=== PATIENT | female | born 1945 | race Caucasian/White ===

== ENCOUNTER 2025-08-07 12:48 | Outpatient (REF) | payer MEDICARE, SELFPAY ==
[2025-08-07 15:34] LABS: Folate 14.2 ng/mL (> or = 4.0); Vitamin B12 785 pg/mL (200-900)
== END 2025-08-07 12:49 | disposition home or self-care (01) ==
LOC: HO.LAB 12:48
PROVIDERS: PCP Internal Medicine; Visit Provider Psychiatry & Neurology Neurology
DX: G30.9 Alzheimer's disease, unspecified (principal); F02.80 Dementia in other diseases classified elsewhere, unspecified severity, without behavioral disturbance, psychotic disturbance, mood disturbance, and anxiety; Z79.620 Long term (current) use of immunosuppressive biologic
CPT/HCPCS: 36415; 82607; 82746; 99202

== ENCOUNTER 2025-08-07 12:48 | Outpatient (AMB) | payer MEDICARE, SELFPAY ==
--- NOTE | 2025-08-07 13:00 | A.OFFVIS_ITS ---
Vital Signs 08/07/25 13:41 Height 5 ft Weight 125 lb BMI 24.4 Intake Visit Reasons: Alzheimers with late onset Allergies amoxicillin Allergy (Unknown, Verified 08/02/25 12:10) Unknown sulfamethoxazole (From Bactrim) Allergy (Unknown, Verified 08/02/25 12:10) Nausea and Vomiting trimethoprim (From Bactrim) Allergy (Unknown, Verified 08/02/25 12:10) Nausea and Vomiting HPI Comments Details: The patient is a 80-year-old female presenting with concerns regarding worsening cognitive function. Cognitive impairments began about a year ago, leading to an initial evaluation by Dr. Mallory, where borderline cognition was noted through testing. Over the year, symptoms progressed to the point of being unable to consistently recall the date or day, besides worsening forgetfulness of routine details, events, and current affairs. The results from a PET scan authorized by Dr. Mallory revealed signs consistent with Alzheimer's disease. Additionally, an MRI was done at [facility] to evaluate further. Despite retaining the ability to prepare simple meals, the patient has observed decreased proficiency in managing daily tasks such as handling financial responsibilities and remembering appointments, indicating a growing need for supervision and assistance. The patient's daughter indicated increasing challenges in coping with the patient?s condition, devoid of known sensory or motor symptoms arising from the cognitive decline. Previous management approaches were non-pharmaceutical, focusing on behavioral coping mechanisms like the use of calendars. The condition, however, seems to demand a more standardized medical approach given its advancement over the recent year. [facility] Medical History (Updated 08/07/25 @ 13:40 by Surendra Ferraro MD) Alzheimer disease Surgical History (Updated 08/02/25 @ 12:07 by Nicko Vences CMA) History of cataract surgery History of dilatation and curettage History of mandibular surgery S/P right knee arthroscopy Family History (Updated 08/02/25 @ 12:09 by Nicko Vences CMA) Father Alzheimer disease Son IBS (irritable bowel syndrome) Daughter IBS (irritable bowel syndrome) Review of Systems Const Details: - Cognitive: Reports forgetfulness, confusion about dates. - Neurologic: Denies sensory or motor symptoms. - Psychological: Denies significant psychiatric symptoms or history of substance abuse. Physical Exam Vital Signs: BMI result Body Mass Index 24.4 Neuro Other: Mental Status: She is alert and awake with normal spontaneity of speech fluency comprehension and affect. Her MOCA score was 15 and mini-mental status score was 17. Cranial Nerves: CN II: Visual head full to confrontation, visual acuity intact. CN III, IV, : Pupils equal, round, reactive to light and accommodation. Extraocular movements are normal. CN V: Facial sensation is normal. CN VII: Facial movements symmetrical. CN VIII: Hearing intact to bedside conversation is normal. CN IX, X: Palate elevates symmetrically. CN XI: Shoulder shrug and head turn symmetrical. CN XII: Tongue midline without atrophy or fasciculations. Deep tendon reflexes were trace to absent. She was walking cautiously with no obvious signs of parkinsonism or tremor. Extrapyramidal: Full facial expressions and blinking. No rigidity. Movements are appropriate with no tremor or abnormality. Speech: Normal; no dysarthria or tremor. Assessment & Plan Assessment & Plan (1) Alzheimer disease: Comment: Labs at [facility] in May 2025: CMP ok, LFTs ok, TSH 1.14 MRI brain WO at [facility] in Nov 2024: Mild atrophy and mild to mod MVD Amyloid PET at [facility] in May 2025: + for amyloid load suggestive of AD pTau 217 in Jan 2025: 0.89 (N:<0.18). Code(s): G30.9 - Alzheimer's disease, unspecified; F02.80 - Dementia in other diseases classified elsewhere, unspecified severity, without behavioral disturbance, psychotic disturbance, mood disturbance, and anxiety Category: Medical Plan Impression recommendations: 80 years old woman with isur-fu-xykbjdaw dementia of Alzheimer type. Her daughter was here to see if she could get and infusion medicine. Daughter has done her research. She was introduced to new monoclonal antibody type of Alzheimer medicines which sometime are used to slow down the process of this condition. While they could provide some benefit, rare patients can have side effect and some side-effects could be significant. Overall, 3-6% of patients can develop abnormalities on MRI of brain. Some of those abnormalities can present like a stroke and rarely patients can have a bleed. Fall these type of pathologies sometime could be relatively benign but at times could result in disability and might also be fatal. Daughter was her healthcare proxy in wanted to go ahead with prescribing these medicines. I would start the insurance process to see if it could work out for her. Formal MRI protocol would be followed to for monitoring. Orders: Orders Vitamin B12 and Folate Today F02.80 - Dementia in other diseases classified elsewhere, unspecified severity, without behavioral disturbance, psychotic dis turbance, mood disturbance, and anxiety, G30.9 - Alzheimer's disease, unspecified Referrals Infusion Center Notification F02.80 - Dementia in other diseases classified elsewhere, unspecified severity, without behavioral disturbance, psychotic disturbance, mood disturbance, and anxiety, G30.9 - Alzheimer's disease, unspecified Medications: New lecanemab-irmb (Leqembi) administer over 1 hr 567 mg (5.67 mL) IV Q2W 180 days Coding Level of Care Code New Pt Level 5 (87568) Diagnoses Alzheimer disease G30.9; F02.80
[2025-08-07 13:41] VITALS: BMI 24.4
--- OUTSIDE RECORDS SUMMARY | 2025-08-07 15:14 | XMS_ITS | Patient Health Record ---
Author Organization Julianne Mallory MD Address [address] [place] [phone] Support Name Relationship Address Phone MckeonPerla feldman(child) Emergency Contact [address] [place] [address] 7
== END 2025-08-07 14:24 | disposition home or self-care (01) ==
LOC: HO.HSM 12:49
PROVIDERS: PCP Internal Medicine; Visit Provider Psychiatry & Neurology Neurology
DX: G30.1 Alzheimer's disease with late onset (principal); F02.B0 Dementia in other diseases classified elsewhere, moderate, without behavioral disturbance, psychotic disturbance, mood disturbance, and anxiety
CPT/HCPCS: 99205

== ENCOUNTER 2025-08-30 13:08 | Outpatient (AMB) | payer MEDICARE, SELFPAY ==
--- OUTSIDE RECORDS SUMMARY | 2025-08-29 09:30 | XMS_ITS ---
Author Organization Julianne Mallory MD Address [address] [place] [phone] Care Team Providers Care Warehouse Stocker Name Role Phone Julianne Mallory Primary Care Provider REASON FOR VISIT 3m f/u Hypertension Encounters Encounter Location Date Provider Diagnosis Julianne Mallory MD [address] [place] [phone] 08/29/2025 Julianne Mallory Plan Of Treatment Next Appt Details Provider Name:Julianne Mallory , 09/20/2025 03:30:00 PM, [address] [place] [address], [phone], Provider Name:Julianne Mallory , 06/11/2026 10:00:00 AM, [address] [place] [address], [phone], Progress Notes * Carlos KAURenDOB:[birth year] (80 yo F)Acc No.[id number]:08/29/2025 Progress Notes Patient: Soni JOHNVERONICA Anne Provider: Goyo Mallory MD :1945 A ge:80 Y S ex:Female Date:08/29/2025 Address:[address] [place], [place] [phone] Subjective: * Chief Complaints: * 1 . [...] Electronic signature of Tala Mallory MD on 08/30/2025 at 04:49 PM EDT Sign off status: Pending * Provider: Goyo Mallory MD Date: Generated for Saadia joseph/Radha/Claire on: 04:49 PM EDT
--- NOTE | 2025-08-30 13:27 | MHC.OFFVIS ---
Intake Visit Reasons: 1 month f/u Allergies amoxicillin Allergy (Unknown, Verified 08/02/25 12:10) Unknown sulfamethoxazole (From Bactrim) Allergy (Unknown, Verified 08/02/25 12:10) Nausea and Vomiting trimethoprim (From Bactrim) Allergy (Unknown, Verified 08/02/25 12:10) Nausea and Vomiting HPI Comments Details: 80 years old woman with Alzheimer dementia. Two of her daughters were here and we had long discussion again about the new type of treatment its potential risks and benefits. The wanted to go ahead with the treatment and we would try to start the processes soon as possible. [facility] Medical History (Updated 08/07/25 @ 13:40 by Surendra Ferraro MD) Alzheimer disease Surgical History (Updated 08/02/25 @ 12:07 by Nicko Vences [facility]) History of cataract surgery History of dilatation and curettage History of mandibular surgery S/P right knee arthroscopy Family History (Updated 08/02/25 @ 12:09 by Nicko Vences CMA) Father Alzheimer disease Son IBS (irritable bowel syndrome) Daughter IBS (irritable bowel syndrome) Review of Systems Const Details: Constitutional:?No fever, chills, fatigue, weight loss, or night sweats. HEENT:?No headache, vision changes, hearing loss, nasal congestion, sore throat. Neurological:?No dizziness, syncope, seizures, numbness, tingling, weakness, tremors, memory loss. Psychiatric:?No anxiety, depression, mood swings, sleep disturbance, or hallucinations. Endocrine:?No heat/cold intolerance, polydipsia, polyuria, or hair/skin changes. Hematologic/Lymphatic:?No easy bruising, bleeding, or lymphadenopathy. Integumentary (Skin):?No rash, lesions, itching, or color changes. ? Physical Exam Neuro Other: Mental Status: Alert and oriented to person, place, and time. Normal attention. Normal spontaneous speech, fluency, and comprehension. Cranial Nerves: CN II: Visual head full to confrontation, visual acuity intact. CN III, IV, : Pupils equal, round, reactive to light and accommodation. Extraocular movements are normal. CN V: Facial sensation is normal. CN VII: Facial movements symmetrical. CN VIII: Hearing intact to bedside conversation is normal. CN IX, X: Palate elevates symmetrically. CN XI: Shoulder shrug and head turn symmetrical. CN XII: Tongue midline without atrophy or fasciculations. Coordination: Xbdbgg-ji-veiv and rzla-kj-mivv testing normal. No dysmetria. Gait and Station: No obvious gait abnormality. No ataxia or instability. Extrapyramidal: Full facial expressions and blinking. No rigidity. Movements are appropriate with no tremor or abnormality. Speech: Normal; no dysarthria or tremor. Results Reviewed Results Reviewed: B12 and folate levels were normal. Assessment & Plan Assessment & Plan (1) Alzheimer disease: Comment: Labs at [facility] in May 2025: CMP ok, LFTs ok, TSH 1.14 MRI brain WO at [facility] in Nov 2024: Mild atrophy and mild to mod MVD Amyloid PET at [facility] in May 2025: + for amyloid load suggestive of AD pTau 217 in Jan 2025: 0.89 (N:<0.18). Code(s): G30.9 - Alzheimer's disease, unspecified; F02.80 - Dementia in other diseases classified elsewhere, unspecified severity, without behavioral disturbance, psychotic disturbance, mood disturbance, and anxiety Category: Medical Plan 80 years old woman with Alzheimer dementia. Leqembi was prescribed after discussing is risks and benefits including possibility of stroke, disability, or in 3-6 % of patients. Orders: Referrals Infusion Center Notification F02.80 - Dementia in other diseases classified elsewhere, unspecified severity, without behavioral disturbance, psychotic disturbance, mood disturbance, and anxiety, G30.9 - Alzheimer's disease, unspecified Coding Level of Care Code Est Pt Level 4 (14593) Diagnoses Alzheimer disease G30.9; F02.80
--- OUTSIDE RECORDS SUMMARY | 2025-08-30 16:50 | XMS_ITS | Patient Health Record ---
Author Organization [facility] Address [address] [id number] Care Team Providers Care Line And Frame Poler Name Role Phone [facility] Primary Care Provider Allergies Allergen (clinical drug ingredient) Drug/Non Drug Allergy documented on EMR Reaction Allergy Type Onset Date Status amoxicillin Amoxicillin Unknown Drug Allergy Act regis sulfamethoxazole / trimethoprim Bactrim nausea and vomiting Drug Allergy Active Results Component Value Reference Range Notes HEMOGLOBIN A1C Reviewed date:05/26/2025 02:45:23 PM Interpretation: Performing Lab: Notes/Report: Hemoglobin A1C 5.9 <6.5 % Mean Bld Glu Estim. 123 Urinalysis, Complete-[id number] Reviewed date:06/07/2025 04:48:54 PM Interpretation: Performing Lab:[facility] [place], [address] [place] [address], Phone - [phone], Director - Nasrin Notes/Report: Specific [place] 1.015 1.005-1.030 pH 7.0 5.0-7.5 Urine-Color Yellow Yellow Appearance Clear Clear WBC Esterase Negative Negative Protein Negative Negative/Trace Glucose Negative Negative Ketones Negative Negative Occult Blood Negative Negative Bilirubin Negative Negative Urobilinogen,Semi-Qn 0.2 0.2-1.0 mg/dL Nitrite, Urine Negative Negative Microscopic Examination Micr oscopic follows if indicated. Microscopic Examination See below: Micr oscopic was indicated and was performed. WBC None seen 0 - 5 /hpf RBC 0-2 0 - 2 /hpf Epithelial Cells (non renal) 0-10 0 - 10 /hpf Casts None seen None seen /lpf Bacteria None seen None seen/Few APOE Alzheimer's Risk-[id number] Reviewed date:06/07/2025 04:48:55 PM Interpretation: Performing Lab:[facility], [address], [place], Phone - [phone], Director - Nasrin Notes/Report: Methodology: Patient DNA is assayed for the APOE genotype by PCR amplification of a specific region in exon 4 of the APOE gene followed by digestion with restriction enzyme Poacher Operator I and separation of fragments by polyacrylamide gel electrophoresis. This approach allows the APOE E2, E3, and E4 alleles to be distinguished. Analytical sensitivity and specificity are >99.5%. Individuals are interpreted as having one of the following genotypes: E2/E2, E3/E3, E4/E4, E2/E3, E2/E4, E3/E4. APO E Genotyping Result: E3/E3 Interpretation: Negative for the APOE4 variant that is associated with increased risk for late onset Alzheimer's disease (AD). E3/E3 is the most common APOE genotype and is not associated with increased risk for AD. RECOMMENDATIONS Genetic counseling is recommended. Due to the lack of measures to prevent the development of AD, the ACMG/NSGC guidelines do not recommend presymptomatic testing, but if it is performed, guidelines are provided (Prosper CHAHAL et al. 2011). The APOE Genotyping: Alzheimer's Risk test is not recommended for children. NOTE: This is not a diagnostic test. Results should be interpreted along with clinical findings and other data. This test evaluates only for the APOE genotype and cannot detect genetic abnormalities elsewhere in the genome. It should be realized that there are possible sources of error including sample misidentification, rare technical errors, trace contamination of PCR reactions, and rare genetic variants that may interfere with analysis. For inquiries or genetic consultation, please call [facility] at . Comment: INFORMATION ABOUT THE APOE GENOTYPE AND ALZHEIMER'S DISEASE Alzheimer's disease (AD) is the most common form of dementia in the elderly and currently affects more than 5 million Americans. It is a progressive neurodegenerative disorder with brain findings of plaques and neurofibrillary tangles containing beta-amyloid and tau protein respectively. The predominant form of AD is late onset (age > 60-65), which can be familial (15-20%) or sporadic. The APOE4 variant increases the risk for late onset AD and may contribute to the pathology of the disease. This risk is increased by approximately 2 to 3-fold for individuals with one copy of the APOE4 variant and by approximately 10 ff65-vwes for individuals with two copies of this variant (E4/E4 genotype). The APOE2 variant has some protective effect against development of late onset AD. The lifetime risk for late onset AD is approximately 10-12% in the general population, though it is higher in women than men and doubles when there is a first degree relative with this disorder. The lifetime risk is approximately 9% for individuals negative for APOE4, and for individuals with E4/E4 may be as high as 25% for males and 45% for females. Among patients with late onset AD, the presence of APOE4 may lead to earlier development of symptoms. However, APOE4 is neither necessary nor sufficient for the development of AD. Approximately 30-50% of patients with late onset AD do not have an APOE4 allele. APOE4 is common, with 25% of the general population having one copy and 1% having two copies of this variant. Among patients with late onset AD, 50-70% are positive for APOE4. The development of late onset AD is influenced by many factors other than APOE4 including age, gender, family history, level of education and history of head trauma. Midlife cardiovascular risk factors in individuals with APOE4 also increase risk for cognitive decline. A number of genetic influences in addition to APOE4 have also been reported and are under investigation. This test was developed and its performance characteristics determined by [facility]. It has not been cleared or approved by the Food and Drug Administration. The FDA has determined that such clearance or approval is not necessary. REFERENCES Sreedhar A et al. Sex modifies the APOE-related risk of developing Alzheimer disease. Annal Neurol 2014;75(4):563-573 Sawyer BROWN. Alzheimer Disease Overview. GeneReviews (internet). Dylan URIBE et al., editors. [facility]: [facility], [place], [place]. Last revised 2014. Prosper JS et al. Genetic counseling and testing for Alzheimer disease: Joint practice guidelines of the [place] [employer] and the National Society of Genetic Counselors. Marianne in Med 2011;[phone]. Jae SALINAS. Apolipoprotein E: Implications for AD neurobiology, epidemiology and risk assessment. Neurobiology of Aging 2011;32:778-790 [facility] Informed Consent Fo Reviewed date:06/07/2025 04:48:55 PM Interpretation: Performing Lab:[facility] [address], [address], [place], Phone - [phone], [facility] Notes/Report: [facility] Informed Consent Form [facility] Informed Consent Form 02 Please Fax back to [phone]. Many states require laboratories to have documentation that the appropriate health care provider has obtained informed consent from patients before the laboratory conducts genetic testing. Informed consent includes the patient understanding the purpose of the test, how the test is performed, the reliability of the test, alternatives to testing, implications of test results, and options on how to instruct the laboratory to store, use or dispose of the sample when testing is complete. [facility] did not receive any documentation of informed consent for above mentioned patient and ordered tests. Please check the statement applicable to this patient and sign below so that [facility] the results [facility] this patient. . [] I authorize and confirm patient consent for the above mentioned genetic test(s). . [] I have provided appropriate informed consent for the above mentioned test(s) and documentation of this consent is maintained in the patient record. . . Health care provider signature Da te . Printed name . Fax back to [facility] at [phone] . [facility] Hemoglobin [id number] Reviewed date:12/02/2024 02:25:44 PM Interpretation: Performing Lab:[facility], [place] , [place], Phone - [phone], Director - Nasrin Notes/Report: Hemoglobin A1c 5.9 4.8-5.6 % . Prediabetes: 5.7 - 6.4 Diabetes: >6.4 Glycemic control for adults with diabetes: <7.0 Vitamin [id number] Reviewed date:12/02/2024 02:25:44 PM Interpretation: Performing Lab:[facility], [place] , [place], Phone - [phone], Director - Nasrin Notes/Report: Vitamin B12 151 549-1789 pg/mL Thyroxine (T4) Free, Direct- [id number] Reviewed date:12/02/2024 02:25:44 PM Interpretation: Performing Lab:[address], Phone - [phone], Director - [facility] Notes/Report: T4,Free(Direct) 1.59 0.82-1.77 ng/dL Folate (Folic Acid), Serum-0 03588 Reviewed date:12/02/2024 02:25:44 PM Interpretation: Performing Lab:[facility], Phone - [phone], Director - [facility] Notes/Report: Folate (Folic Acid), Serum 14.6 >3.0 ng/mL A serum folate concentration of less than 3.1 ng/mL is considered to represent clinical deficiency. Urinalysis, Complete-[id number] Reviewed date:12/02/2024 02:25:44 PM Interpretation: Performing Lab:[address], Phone - [phone], Director - [facility] Notes/Report: Specific [place] 1.011 1.005-1.030 pH 6.5 5.0-7.5 Urine-Color Yellow Yellow Appearance Clear Clear WBC Esterase Negative Negative Protein Negative Negative/Trace Glucose Negative Negative Ketones Negative Negative Occult Blood Negative Negative Bilirubin Negative Negative Urobilinogen,Semi-Qn 0.2 0.2-1.0 mg/dL Nitrite, Urine Negative Negative Microscopic Examination Micr oscopic follows if indicated. Microscopic Examination See below: Micr oscopic was indicated and was performed. WBC None seen 0 - 5 /hpf RBC None seen 0 - 2 /hpf Epithelial Cells (non renal) None seen 0 - 10 /hpf Casts None seen None seen /lpf Bacteria None seen None seen/Few [id number]-[id number] Reviewed date:12/02/2024 02:25:44 PM Interpretation: Performing Lab:[facility], Phone - [phone], Director - [facility] Notes/Report: TSH 2.050 0.450-4.500 uIU/mL Vitamin D, 59-Rmxfrcm-[id number] Reviewed date:12/02/2024 02:25:44 PM Interpretation: Performing Lab:[facility] [place], [address] [place] [address], Phone - [phone], Director - Nasrin Notes/Report: Vitamin D, 25-Hydroxy 38.2 30.0-100.0 ng/mL Vitamin D deficiency has been defined by the [place] of Medicine and an Endocrine Society practice guideline as a level of serum 25-OH vitamin D less than 20 ng/mL (1,2). The Endocrine Society went on to further define vitamin D insufficiency as a level between 21 and 29 ng/mL (2). 1. IOM ([place] of Medicine). 2010. Dietary reference intakes for calcium and D. [place]: The National Academies Press. 2. Keeley MF, Michael NC, Michael MCKEE, et al. Evaluation, treatment, and prevention of vitamin D deficiency: an Endocrine Society clinical practice guideline. JCEM. 2010; 96(7):1911-30. Albumin/Creatinine Ratio,Uri ne-[id number] Reviewed date:12/02/2024 02:25:44 PM Interpretation: Performing Lab:[facility] [place], [address] [place] [address], Phone - [phone], Director - Nasrin Notes/Report: Creatinine, Urine 63.6 Not Estab. mg/dL Albumin, Urine 5.0 Not Estab. ug/mL Alb/Creat Ratio 8 0-29 mg/g creat Normal: 0 - 29 Moderately increased: 30 - 300 Severely increased: >300 Comp. Metabolic Panel (14)-3 42062 Reviewed date:12/02/2024 02:25:44 PM Interpretation: Performing Lab:[facility] [place], [address] [place] [address], Phone - [phone], Director - Nasrin Notes/Report: Glucose 111 70-99 mg/dL BUN 14 8-27 mg/dL Creatinine 0.88 0.57-1.00 mg/dL eGFR 67 >59 mL/min/1.73 BUN/Creatinine Ratio 16 12-28 Sodium 140 134-144 mmol/L Potassium 5.3 3.5-5.2 mmol/L Chloride 99 96-106 mmol/L Carbon Dioxide, Total 25 20-29 mmol/L Calcium 10.3 8.7-10.3 mg/dL Protein, Total 7.6 6.0-8.5 g/dL Albumin 4.9 3.8-4.8 g/dL Globulin, Total 2.7 1.5-4.5 g/dL Bilirubin, Total 0.8 0.0-1.2 mg/dL Alkaline Phosphatase 91 44-121 IU/L AST (SGOT) 29 0-40 IU/L ALT (SGPT) 15 0-32 IU/L LP+Non-HDL Cholesterol-90703 5 Reviewed date:12/02/2024 02:25:44 PM Interpretation: Performing Lab:[facility], [address], [place], Phone - [phone], Director - Nasrin Notes/Report: Cholesterol, Total 241 100-199 mg/dL Triglycerides 91 0-149 mg/dL HDL Cholesterol 99 >39 mg/dL VLDL Cholesterol Luis 15 5-40 mg/dL LDL Chol Calc (NIH) 127 0-99 mg/dL Non-HDL Cholesterol 142 0-129 mg/dL MR Brain WO Reviewed date:12/12/2024 04:02:24 PM Interpretation: Performing Lab: Notes/Report: IMGEAP Reviewed date:12/02/2024 02:25:44 PM Interpretation: Performing Lab: Notes/Report: See Note [facility], a member of [facility] PROCEDURE: Noncontrast MRI of the brain. HISTORY: mild cognitive impairment. COMPARISON: None. TECHNIQUE: Multiplanar multisequence MRI of the brain without intravenous contrast administration. FINDINGS: BRAIN: No diffusion abnormality. No mass or extra-axial fluid collection. No hydrocephalus. The major intracranial flow voids are preserved. Age commensurate ventricles and sulci. Foci of T2 prolongation in the supratentorial white matter are nonspecific but likely sequela of mild chronic microvascular ischemic disease. ORBITS: Lens implants. SINUSES/MASTOIDS: Normal. CALVARIUM: Normal. OTHER: The visualized skull base soft tissues are normal. Partially visible mild degenerative changes of the cervical spine. IMPRESSION: 1. No acute intracranial findings. 2. Mild chronic microvascular ischemic changes of the supratentorial white matter. -------- FINAL REPORT -------- Dictated By: Omid Grossman Dictated Date: 12/02/2024 10:12 ET Assigned Physician: Omid Grossman Reviewed and Electronically Signed By: Omid Grossman Signed Date: 12/02/2024 10:21 ET Workstation ID: [id number] Transcribed By: Self Edit Transcribed Date: 12/02/2024 10:12 ET KRISTAL Reviewed date:10/02/2024 08:55:06 AM Interpretation: Performing Lab: Notes/Report: See Note [facility], a member of [facility] EXAM: SCREENING MAMMOGRAPHY, BILATERAL HISTORY: SCREENING. No additional history. COMPARISON: 10/24/2022, 10/21/2021, 09/24/2020 TECHNIQUE: Synthesized CC and MLO projections of each breast. Tomosynthesis of each breast in the CC and MLO projections. ADDITIONAL IMAGING: None Computer-aided detection was employed with the Duable ChineseD Xenapto AI 3-D. TISSUE DENSITY: There are scattered areas of fibroglandular density. (BI-RADS category B) FINDINGS: RIGHT BREAST: Circumscribed equal density 0.7 cm oval mass with a fatty notch in the 10 o'clock position 4 cm from the right nipple is most consistent with an intramammary lymph node. No additional suspicious right breast findings LEFT BREAST: No suspicious mass. No suspicious calcification. No distortion. No additional suspicious left breast findings IMPRESSION: No mammographic evidence of malignancy. No suspicious interval change. A negative mammogram in the presence of a clinically suspicious palpable abnormality does not preclude the possibility of malignancy or alter the indications for biopsy. ASSESSMENT: BI-RADS 2: BENIGN RECOMMENDATION(S): 1: Routine screening mammogram BILATERAL in 1 year. -------- FINAL REPORT -------- Dictated By: Iker Rosenberg Dictated Date: 09/23/2024 10:40 ET Assigned Physician: Iker Rosenberg Reviewed and Electronically Signed By: Iker Rosenberg Signed Date: 09/23/2024 10:52 ET Workstation ID: [id number] Transcribed By: Self Edit Transcribed Date: 09/23/2024 10:40 ET Vitamin [id number] Reviewed date:01/30/2025 06:06:41 PM Interpretation: Performing Lab:[facility], [address] [place] [address], Phone - [phone], Director - Ron Notes/Report: Test(s) [id number] was developed and its performance characteristics determined by [facility]. It has not been cleared or approved by the Food and Drug Administration. Vitamin B12 631 963-9581 pg/mL TSH-[id number] Reviewed date:01/30/2025 06:06:41 PM Interpretation: Performing Lab:[facility], [address] [place] [address], Phone - [phone], Director - [facility] Notes/Report: Test(s) [id number] was developed and its performance characteristics determined by [facility]. It has not been cleared or approved by the Food and Drug Administration. TSH 1.630 0.450-4.500 uIU/mL Phosphorylated Tau 217 (pTau -217) Reviewed date:01/30/2025 06:06:41 PM Interpretation: Performing Lab:[facility], [address] [place] [address], Phone - [phone], Director - [facility] Notes/Report: Test(s) [id number] was developed and its performance characteristics determined by [facility]. It has not been cleared or approved by the Food and Drug Administration. p-jxs622 0.89 0.00-0.18 pg/mL Clinical cutoff value was established using samples from a patient cohort characterized with amyloid PET data. A p-llq692 value of >0.18 is a reported surrogate marker for beta amyloid pathology, and can be used to facilitate biological identification of Alzheimer's disease (1). p-mia041 has also been used in clinical trials to monitor patients on anti-amyloid therapy (2,3). Test performed by [employer] Digital Keys chemiluminescent enzyme immunoassay (CLEIA). Values obtained with different methods cannot be used interchangeably. The validated limit of quantification is 0.06 pg/mL. Assay detection limit is 0.03 pg/mL. Footnotes 1. Amador Tong, et al. Diagnostic Accuracy of a Plasma Phosphorylated Tau 217 Immunoassay for Alzheimer Disease Pathology. RG neurology (2023). 2. Amador Tong, et al. Differential roles of A42/40, p-oyw366 and p-jqk183 for Alzheimer's trial selection and disease monitoring. Nature medicine 28.12 (2021): 1967-9781. 3. Jenn CARRIZALES, Rachelle M, Xenia SC, et al. Association of Donanemab Treatment With Exploratory Plasma Biomarkers in Early Symptomatic Alzheimer Disease: A Secondary Analysis of the TRAILBLAZER-ALZ Randomized Clinical Trial . RG Neurol. 2021;79(12):4200-8762. COMPREHENSIVE METABOLIC PANJosafat L Reviewed date:05/26/2025 02:45:23 PM Interpretation: Performing Lab: Notes/Report: Sodium 138 133-145 mmol/L Potassium 4.5 3.5-5.5 mmol/L Chloride 103 96-110 mmol/L CO2 30 21-32 mmol/L Anion Gap 5 3-11 Glucose 88 70-100 mg/dL BUN 14 5-25 mg/dL Creatinine 0.79 0.50-1.10 mg/dL eGFR 77 >=60 mL/min/1.73m2 Calculati on based on the Chronic Kidney Disease Epidemiology Collaboration (CKD-EPI) equation refit without adjustment for race. BUN/Creatinine Ratio 17.7 Calcium 9.1 8.5-10.5 mg/dL AST (SGOT) 22 10-42 unit/L ALT (SGPT) 21 10-60 unit/L Alkaline Phosphatase 70 42-121 unit/L Total Protein 6.6 6.0-8.0 g/dL Albumin 3.8 3.2-5.0 g/dL Total Bilirubin 0.6 0.0-1.4 mg/dL LIPID PANEL WITH REFLEX TO D IRECT LDL Reviewed date:05/26/2025 02:45:23 PM Interpretation: Performing Lab: Notes/Report: Cholesterol 188 0-200 mg/dL Triglycerides 111 0-150 mg/dL HDL 91 >=40 mg/dL LDL Calculated 75 0-100 mg/dL VLDL Cholesterol Luis 22.2 Non HDL Chol. (LDL+VLDL) 97 <145 mg/dL Chol/HDL Ratio 2.1 0.0-4.4 THYROID STIMULATING HORMONE Reviewed date:05/26/2025 02:45:23 PM Interpretation: Performing Lab: Notes/Report: TSH 1.14 0.40-4.00 mcIU/mL THYROXINE FREE Reviewed date:05/26/2025 02:45:23 PM Interpretation: Performing Lab: Notes/Report: Free T4 1.78 0.70-1.80 ng/dL VITAMIN D 25 HYDROXY Reviewed date:05/26/2025 02:45:23 PM Interpretation: Performing Lab: Notes/Report: Vit D, 25-Hydroxy 34.6 30.0-80.0 ng/mL Reason For Referral Reason faxed Diagnosis 1 Alzheimer's disease with late onset (G30.1) Referral Organization [facility] Referring Provider First Name Julianne Referring Provider Last Name Mohamud Referring Provider Speciality Internal M edicine Referred Provider Surendra Ferraro Referred Provider Specialty Neurology [facility] PM >faxed, [facility] Danika 07/26/2025 03:57:10 PM >requested notes Referral Priority Routine Medications Medication SIG (Take, Route, Frequency, Duration) Notes Start Date End Date Status Levoxyl 50 MCG TAKE 1 TABLET EVERY MORNINGON AN EMPTY STOMACH; Duration: 90 Active Pepcid 20 MG 1 Tablet Orally Once a day PRN; Duration: 30 day(s) Active Vitamin D 2000 UNIT 1 capsule Orally Onc e a day Active Lisinopril 20 MG TAKE 1 TABLET ONCE DAILY; Duration: 90 Active Nasonex 50 MCG/ACT 2 sprays in each nostril Nasally Once a day; Duration: 30 day(s) 08/31/2017 Not-Taking Multi For Her - 1 Tablet Orally Once a day Not-Taking Atorvastatin Calcium 40 MG TAKE 1 TABLET DAILY.; Duration: 90 Active Immunizations Vaccine Route Administration Date Status Comme nts COVID COMIRNATY Pfizer Unknown 09/25/2023 Administered COVID-19 Pfizer BiValent Booster Unknown 08/15/2022 Administered MIOBI-12-Vebief Vaccine Unknown 02/02/2021 Administered MUBCG-61-Jyquid Vaccine Unknown 02/23/2021 Administered SIYFQ-74-Osmldj Vaccine Unknown 10/16/2021 Administered COVID 19 (Pfizer 12+) Unknown 04/04/2022 Administered *PREVNAR 20 IM Intramuscular 05/26/2024 Administered *Pneumococcal polysaccharide PPV23 Unknown 08/24/2017 Administered *Influenza, High Dose Seasonal, Quadrivatent Unknown 09/19/2022 Administered *Influenza, High Dose Seasonal, Quadrivatent Unknown 09/07/2023 Administered Influenza Unknown 07/17/2016 Administered Influenza Unknown 08/24/2017 Administered Influenza IM Intramuscular 07/22/2018 Administered Influenza Unknown 08/30/2020 Administered Influenza Unknown 08/13/2021 Administered Influenza, high dose seasonal Unknown 09/02/2020 Administered Per Patient Pneumococcal polysaccharide PCV 13 Unknown 08/08/2019 Administered Pneumococcal polysaccharide PPV23 Unknown 11/16/2010 Administered Pneumococcal polysaccharide PPV23 Unknown 07/23/2011 Administered Td (adult) preservative free Unknown 05/16/2001 Administered Td (adult) preservative free Unknown 07/23/2011 Administered Td (adult) preservative free IM Intramuscular 05/02/2022 Administered Zoster Unknown 03/02/2014 Administered Social History Tobacco Use: Social History Observation Description Date Details (start date - stop date) Never Smoker NA - NA Tobacco Use/Smoking Question Answer Notes Are you a nonsmoker Additional Findings: Tobacco Non-User Non-smoker for personal reasons Alcohol Screen (Audit-C) Question Answer Notes Did you have a drink contain ing alcohol in the past year? Yes How often did you have a dri nk containing alcohol in the past year? 2 to 4 times a month (2 points) How many drinks did you have on a typical day when you were drinking in the past year? 1 or 2 drinks (0 point) How often did you have 6 or more drinks on one occasion in the past year? Never (0 point) Points 2 Interpretation Negative AUDIT-C (Standard) Question Answer Notes Did you have a drink contain ing alcohol in the past year? Yes How often did you have six o r more drinks on one occasion in the past year? Never (0 point) How many drinks did you have on a typical day when you were drinking in the past year? 1 or 2 drinks (0 point) How often did you have a dri nk containing alcohol in the past year? 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 Problem Autoimmune thyroiditis (90333998) Autoimmune thyroiditis (E06.3) Active confirmed Problem Vitamin D deficiency (84212482) Vitamin D deficiency, unspecified (E55.9) Active confirmed Problem Mixed hyperlipidemia (141065640) Mixed hyperlipidemia (E78.2) Active confirmed Problem Alzheimer's disease with early onset (695501408) Alzheimer's disease with early onset (G30.0) Active confirmed Problem Alzheimer's disease with late onset (711528723) Alzheimer's disease with late onset (G30.1) Active confirmed Problem Disorder of hypoglossal nerve (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 Problem Sensorineural hearing loss of bilateral ears (disorder) (624583724) Sensorineural hearing loss, bilateral (H90.3) Active confirmed Problem Chronic kidney disease due to hypertension (396239416146203) Hypertensive chronic kidney disease with stage 1 through stage 4 chronic kidney disease, or unspecified chronic kidney disease (I12.9) Active confirmed Problem Chronic rhinitis (36503790) Chronic rhinitis (J31.0) Active confirmed Problem Rosacea (003751567) Rosacea, unspecified (L71.9) Active confirmed Problem Localized, primary osteoarthritis of the hand (453762359) 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) Active confirmed Problem Age-related osteoporosis (282439036) Age-related osteoporosis without current pathological fracture (M81.0) Active confirmed Problem Chronic kidney disease stage 2 (883462257) Chronic kidney disease, stage 2 (mild) (N18.2) Active confirmed Problem Impaired fasting glucose (277925752) Impaired fasting glucose (R73.01) Active confirmed Problem Preoperative cardiovascular examination (279307463) Encounter for preprocedural cardiovascular examination (Z01.810) Active confirmed Problem Prediabetes (187208917) Prediabetes (R73.03) Active confirmed Problem Moderate dementia (disorder) (647008231177124) Dementia in other diseases classified elsewhere, moderate, without behavioral disturbance, psychotic disturbance, mood disturbance, and anxiety (F02.B0) Active confirmed Problem Mild cognitive disorder (348361429) Mild cognitive impairment of uncertain or unknown etiology (G31.84) Inactive confirmed Problem Age-related nuclear cataract of right eye (475313259082476) Age-related nuclear cataract, right eye (H25.11) Problem resolved confirmed Problem Age-related nuclear cataract of left eye (254076721201698) Age-related nuclear cataract, left eye (H25.12) Problem resolved confirmed Problem Derangement of posterior horn of lateral meniscus (33989789) Derangement of posterior horn of lateral meniscus due to old tear or injury, right knee (M23.251) Problem resolved confirmed Vital Signs Heart Rate 76 /min 05/30/2025 Temperature 95.3 degrees Fahrenheit 05/30/2025 Blood pressure diastolic 60 mm Hg 05/30/2025 Oximetry 97 % 05/30/2025 Height 60 in 05/30/2025 Blood pressure systolic 112 mm Hg 05/30/2025 Weight 128 lbs 05/30/2025 BMI 25.0 kg/m2 05/30/2025 Encounters Encounter Location Date Provider Diagnosis Julianne Mallory MD [address] [facility] [address] [place] [address] [id number] 01/18/2025 Julianne Mallory MD [address] [place] [address] [id number] 07/03/2025 Julianne Mallory MD [address] [place] [address] [id number] 01/28/2025 Julianne Mallory Alzheimer's disease with early onset G30.0 Julianne Mallory MD [address] [place] [address] [id number] 01/31/2025 Julianne Mallory MD [address] [place] [address] [id number] 02/08/2025 Julianne Mallory MD [address] [place] [address] [id number] 02/08/2025 Julianne Mallory MD [address] [place] [address] [id number] 03/29/2025 Julianne Mallory MD [address] [place] [address] [id number] 03/30/2025 Julianne Mallory Alzheimer's disease with early onset G30.0 Julianne Mallory MD [address] [place] [address] [id number] 05/12/2025 Julianne Mallory MD [address] [place] [address] [id number] 05/23/2025 Julianne Mlalory MD [address] [place] [address] [id number] 08/10/2025 Julianne Mallory MD [address] [place] [address] [id number] 01/18/2025 Julianne Mallory Hypertensive chronic kidney disease with stage 1 through stage 4 chronic kidney disease, or unspecified chronic kidney disease I12.9 and Unspecified dementia, mild, without behavioral disturbance, psychotic disturbance, mood disturbance, and anxiety F03.A0 Julianne Mallory MD [address] [id number] 11/22/2024 Julianne Mallory Hypertensive chronic kidney disease with stage 1 through stage 4 chronic kidney disease, or unspecified chronic kidney disease I12.9 ; Chronic kidney disease, stage 2 (mild) N18.2 ; Autoimmune thyroiditis E06.3 ; Prediabetes R73.03 ; Mixed hyperlipidemia E78.2 ; Benign neoplasm of bone and articular cartilage, 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 ; Age-related osteoporosis without current pathological fracture M81.0 ; Vitamin D deficiency, unspecified E55.9 and Mild cognitive impairment of uncertain or unknown etiology G31.84 Julianne Mallory MD [address] [id number] 05/30/2025 Julianne Mallory Hypertensive chronic kidney disease with stage 1 through stage 4 chronic kidney disease, or unspecified chronic kidney disease I12.9 ; Encounter for general adult medical examination without abnormal findings Z00.00 ; Chronic kidney disease, stage 2 (mild) N18.2 ; Alzheimer's disease with late onset G30.1 ; Dementia in other diseases classified elsewhere, moderate, without behavioral disturbance, psychotic disturbance, mood disturbance, and anxiety F02.B0 ; Autoimmune thyroiditis E06.3 ; Prediabetes R73.03 ; Mixed hyperlipidemia E78.2 ; Benign neoplasm of bone and articular cartilage, 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 ; Age-related osteoporosis without current pathological fracture M81.0 ; Vitamin D deficiency, unspecified E55.9 ; Encounter for screening for malignant neoplasm of colon Z12.11 ; Encounter for screening mammogram for malignant neoplasm of breast Z12.31 ; Encounter for screening for osteoporosis Z13.820 ; Asymptomatic menopausal state Z78.0 ; Encounter for screening for cardiovascular disorders Z13.6 ; Encounter for immunization Z23 ; Encounter for antibody response examination Z01.84 and Encounter for screening for other viral diseases Z11.59 Assessments Encounter Date Diagnosis (ICD Code) Assessment Notes Treatment Notes Treatment Clinical Notes Section Notes 11/22/2024 Hypertensive chronic kidney disease with stage 1 through stage 4 chronic kidney disease, or unspecified chronic kidney disease (ICD-10 - I12.9) Fair control and stable at present time. She is probably less than 120 majority the time but can recheck in short interval given that there is a concern that she may not be taking her medications effectively. Her daughter will check to verify that she is taking her medications and if she is in her blood pressure remains elevated then we can increase dose to achieve better control to minimize risk for progressive cognitive impairment 11/22/2024 Chronic kidney disease, stage 2 (mild) (ICD-10 - N18.2) Stable on prior labs as reviewed with estimated GFR in the 70s. Continue control of comorbidity of hypertension 01/18/2025 Hypertensive chronic kidney disease with stage 1 through stage 4 chronic kidney disease, or unspecified chronic kidney disease (ICD-10 - I12.9) Stable at present. Her MRI does show some vascular changes and there may be component of vascular dementia but given her fairly well-controlled hypertension there may be other components as well. Can check and evaluate for other components 01/18/2025 Unspecified dementia, mild, without behavioral disturbance, psychotic disturbance, mood disturbance, and anxiety (ICD-10 - F03.A0) She has some degree of mild impairment and almost moderate impairment. At the present time can also evaluate for Alzheimer's as a coral existent etiology for her cognitive impairment. The daughter has already taken steps to have a healthcare proxy and power of clerical grader and other legal matters taken care of already 01/28/2025 Alzheimer's disease with early onset (ICD-10 - G30.0) 03/30/2025 Alzheimer's disease with early onset (ICD-10 - G30.0) 05/30/2025 Hypertensive chronic kidney disease with stage 1 through stage 4 chronic kidney disease, or unspecified chronic kidney disease (ICD-10 - I12.9) Stable at present. Continue current medical therapy. She is at a level that would be consistent with the [employer] mine trial result now. 05/30/2025 Encounter for general adult medical examination without abnormal findings (ICD-10 - Z00.00) General healthcare up-to-date. Check routine labs. Her daughter is her healthcare proxy. 05/30/2025 Chronic kidney disease, stage 2 (mild) (ICD-10 - N18.2) Stable estimated GFR in the 70s. Continue control of current comorbidity of hypertension. 11/22/2024 Autoimmune thyroiditis (ICD-10 - E06.3) Stable on prior labs as reviewed. Continue current replacement therapy 11/22/2024 Prediabetes (ICD-10 - R73.03) Stable on prior labs as reviewed. Recheck status. Continue encourage activity and exercise 05/30/2025 Alzheimer's disease with late onset (ICD-10 - G30.1) Her evaluation shows that she has Alzheimer's with some cognitive impairment. Recommend evaluation for treatment with disease modifying therapy 05/30/2025 Dementia in other diseases classified elsewhere, moderate, without behavioral disturbance, psychotic disturbance, mood disturbance, and anxiety (ICD-10 - F02.B0) As above 11/22/2024 Mixed hyperlipidemia (ICD-10 - E78.2) Stable on prior labs as reviewed with LDL less than 130. 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 Continue exercise 11/22/2024 Age-related osteoporosis without current pathological fracture (ICD-10 - M81.0) She continues with some resistance exercise. 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 11/22/2024 Vitamin D deficiency, unspecified (ICD-10 - E55.9) Stable on prior labs as reviewed. Recheck status as adjunct evaluation for possible dementia 05/30/2025 Mixed hyperlipidemia (ICD-10 - E78.2) Stable at present with LDL less than 100. Continue current medical therapy for primary prevention strategy 11/22/2024 Mild cognitive impairment of uncertain or unknown etiology (ICD-10 - G31.84) Her daughter comes in with her today. She has noticed that probably since August of last year there has been change in her behavior. She is not as interested in the holidays and has not gone as much shopping as she used to. There may be some depressed mood. In addition she appears to have some cognitive decline. When she was last here her screening did not suggest any severe issues and given this noticeable change there may have been an acute event that went unrecognized. This may also be due to some mood issues. At this point her daughter does not feel she needs medical therapy for depression but hopefully as the weather gets better and with increase socialization her winter blues will improve. Can reevaluate her after evaluation for biochemical causes for memory impairment as well as structural causes with an MRI. 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 She does not wish to take medical therapy for concern of jaw osteonecrosis. 05/30/2025 Vitamin D deficiency, unspecified (ICD-10 - E55.9) Stable on prior labs as reviewed. Would continue vitamin D supplementation to maintain level of 30+ 05/30/2025 Encounter for screening for malignant neoplasm of colon (ICD-10 - Z12.11) Up-to-date on colon cancer screening 05/30/2025 Encounter for screening mammogram for malignant neoplasm of breast (ICD-10 - Z12.31) Due for repeat breast cancer screening 05/30/2025 Encounter for screening for osteoporosis (ICD-10 - Z13.820) Due for repeat osteoporosis screening 05/30/2025 Asymptomatic menopausal state (ICD-10 - Z78.0) 05/30/2025 Encounter for screening for cardiovascular disorders (ICD-10 - Z13.6) Blood pressure stable. Can check for comorbidity of hyperlipidemia and hyperglycemia and use this data to further assess risk 05/30/2025 Encounter for immunization (ICD-10 - Z23) Vaccines up-to-date 05/30/2025 Encounter for antibody response examination (ICD-10 - Z01.84) She would be considered immune to rubeola by virtue of her age 0705/30/2025 Encounter for screening for other viral diseases (ICD-10 - Z11.59) Screening for hepatitis C has already been performed 11/22/2024 Other This note was created with voice dictation recognition software and may contain errors of grammar and syntax. Also labs were reviewed with patient. 01/18/2025 Other This note was created with voice dictation recognition software and may contain errors of grammar and syntax. Also labs were reviewed with patient. 05/30/2025 Other This note was created with voice dictation recognition software and may contain errors of grammar and syntax. Also labs were reviewed with patient. Plan Of Treatment Pending Test Test Name Order Date 25OH VITAMIN D 05/25/2023 COMPLETE CBC WITH DIFF 05/25/2023 COMPLETE URINALYSIS 05/25/2023 COMPREHENSIVE METABOLIC PANEL 05/25/2023 LIPID PANEL W REFLEX TO DLDL 05/25/2023 CBC 05/25/2023 CBC 05/02/2022 CBC 04/22/2021 CBC 10/24/2021 COMPREHENSIVE METABOLIC PANEL 10/24/2021 COMPREHENSIVE METABOLIC PANEL 04/22/2021 COMPREHENSIVE METABOLIC PANEL 05/02/2022 COMPREHENSIVE METABOLIC PANEL 05/25/2023 GLYCOHEMOGLOBIN PROFILE 05/25/2023 GLYCOHEMOGLOBIN PROFILE 05/02/2022 GLYCOHEMOGLOBIN PROFILE 10/24/2021 GLYCOHEMOGLOBIN PROFILE 04/22/2021 HEPATITIS C VIRUS SCREEN 05/25/2023 LIPID PROFILE 05/25/2023 LIPID PROFILE 04/22/2021 LIPID PROFILE 10/24/2021 LIPID PROFILE 05/02/2022 FREE T4 05/02/2022 FREE T4 10/24/2021 FREE T4 05/25/2023 TSH 05/25/2023 TSH 10/24/2021 TSH 05/02/2022 URINALYSIS 05/02/2022 URINALYSIS 04/22/2021 URINALYSIS 10/24/2021 URINALYSIS 05/25/2023 MICROALB/CREAT RATIO, RANDOM 10/24/2021 VITAMIN D, 25-HYDROXY 10/24/2021 VITAMIN D, 25-HYDROXY 04/18/2020 VITAMIN D, 25-HYDROXY 04/22/2021 VITAMIN D, 25-HYDROXY 05/25/2023 VITAMIN D, 25-HYDROXY 05/02/2022 COLOGUARD 02/25/2017 Alicia Dexa Axial Skeleton 05/26/2024 ANTI-HEPATITIS C W/RFLX HCV QNT 05/02/20 22 ANTI-HEPATITIS C W/RFLX HCV QNT 05/25/20 23 MMR (MEASLES, MUMPS, RUBELLA) IGG TITER 04/18/2020 Hemoglobin P4m-194975 05/26/2024 Hemoglobin R2l-906621 05/30/2025 Thyroxine (T4) Free, Direct-688280 05/30 Thyroxine (T4) Free, Direct-449033 05/26 Urinalysis, Complete-015506 05/26/2024 TSH-358379 05/30/2025 TSH-860053 05/26/2024 CBC With Differential/Platelet-[id number] CBC With Differential/Platelet-395009 Vitamin D, 80-Uihdyjw-095015 05/30/2025 Vitamin D, 67-Ldwzbxx-423149 05/26/2024 Comp. Metabolic Panel [phone] Comp. Metabolic Panel [phone] LP+Non-HDL Cholesterol-489204 05/30/2025 LP+Non-HDL Cholesterol-892929 05/26/2024 HCV Antibody-650370 05/26/2024 HCV Antibody-237000 05/30/2025 BD BONE DENSITY DXA AXIAL SKELETON 05/30 MG MAMMO DIGITAL SCREENING BILAT 025 Future Test Test Name Order Date CBC 01/14/2019 COMPREHENSIVE METABOLIC PANEL 01/14/2019 GLYCOHEMOGLOBIN PROFILE 01/14/2019 LIPID PROFILE 01/14/2019 FREE T4 01/14/2019 TSH 01/14/2019 URINALYSIS 01/14/2019 VITAMIN D, 25-HYDROXY 01/14/2019 CBC 08/12/2019 COMPREHENSIVE METABOLIC PANEL 08/12/2019 GLYCOHEMOGLOBIN PROFILE 08/12/2019 LIPID PROFILE 08/12/2019 FREE T4 08/12/2019 TSH 08/12/2019 URINALYSIS 08/12/2019 MICROALB/CREAT RATIO, RANDOM 08/12/2019 VITAMIN D, 25-HYDROXY 08/12/2019 CBC 03/30/2021 COMPREHENSIVE METABOLIC PANEL 03/30/2021 GLYCOHEMOGLOBIN PROFILE 03/30/2021 LIPID PROFILE 03/30/2021 FREE T4 03/30/2021 TSH 03/30/2021 URINALYSIS 03/30/2021 MICROALB/CREAT RATIO, RANDOM 03/30/2021 VITAMIN D, 25-HYDROXY 03/30/2021 Next Appt Details Provider Name:Julianne Mallory , 09/20/2025 03:30:00 PM, [address] [place] [address], [phone], Provider Name:Julianne Mallory , 06/11/2026 10:00:00 AM, [address] [place] [address], [phone], Insurance Providers Payer Name Payer Address Payer Phone Subscriber Number Group Number Insured Name Patient Relationship to Insured Coverage Start Date Coverage End Date MEDICARE [address] [place] [phone] [id number] Anne Kaur Self - patient is the insured [facility] [employer] [address] [place] [address] [phone] [id number] Anne Kaur Self - patient is the insured Medical (General) History Medical History History ICD Code Contusion of unspecified front wall of t horax, initial encounter Localized swelling, mass and lump, left upper limb Impaired fasting glucose R73.01 Rosacea, unspecified L71.9 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 Vitamin D deficiency, unspecified E55.9 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, 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 Chronic rhinitis J31.0 Age-related nuclear cataract, left eye H 25.12 Age-related nuclear cataract, right eye H25.11 Autoimmune thyroiditis E06.3 Hypertensive chronic kidney disease with stage 1 through stage 4 chronic kidney disease, or unspecified chronic kidney disease I12.9 Chronic kidney disease, stage 2 (mild) N 18.2 Derangement of posterior hor n of lateral meniscus due to old tear or injury, right knee (resolved 04/22/2021) Age-related nuclear cataract, right eye (resolved 10/24/2021) Age-related nuclear cataract, left eye ( resolved 10/24/2021) Surgical History Surgery Date(Month/Year) 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
--- OUTSIDE RECORDS SUMMARY | 2025-08-30 16:50 | XMS_ITS | Clinical Summary ---
Author Organization [facility] Address [address] [place] [address] Care Team Providers Care Cashier Greeter Name Role Phone Julianne Mallory MD Primary Care Provider [phone] Allergies Active Allergy Reactions Criticality Noted Date Comments Amoxicillin-Pot Clavulanate 04/08/20 18 Sulfamethoxazole-Trimethoprim 2017 Meperidine 04/08/2018 Medications Medication Sig Dispensed Refills Start Date End Date Status LEVOXYL 50 MCG tablet 0 03/19/2018 Act regis lisinopril (PRINIVIL,ZESTRIL) tablet 10 mg Take 1 tablet by mouth. 0 04/17/2012 Active atorvastatin (LIPITOR) tablet 40 mg Take 1 tablet by mouth. 0 04/17/2012 Active lisinopril (PRINIVIL,ZESTRIL) tablet 20 mg 0 03/27/2018 Active Active Problems Problem Noted Date Diagnosed Date Right knee injury, initial encounter 12/09/2018 Acute medial meniscus tear, right, initial encou nter 12/09/2018 Family History Medical History Relation Name Comments Heart disease Mother Relation Name Status Comments Mother Social History Tobacco Use Types Packs/Day Years Used Date Smoking Tobacco: Never Assessed Sex and Gender Information Value Date Recorded Sex Assigned at Not on file Gender Identity Not on file Sexual Orientation Not on file Last Filed Vital Signs Vital Sign Reading Time Taken Comments Blood Pressure - - Pulse - - Temperature - - Respiratory Rate - - Oxygen Saturation - - Inhaled Oxygen Concentration - - Weight 64.9 kg (143 lb) 04/08/2018 9:29 AM EDT Height 152.4 cm (5') 04/08/2018 9:29 AM EDT Body Mass Index 27.93 04/08/2018 9:29 AM EDT Plan of Treatment Health Maintenance Due Date Last Done Comments Hepatitis C Screening 1945 COVID-19 Vaccine (#1) 1945 Depression Screening 1958 Preventative Health Evaluation 1964 DTap / Tdap / Td (1 - Tdap) 1965 Shingrix-Zoster Vaccine (1 of 2) 1996 Fall Risk Assessment 2011 Osteoporosis Screening (DEXA Scan) 2011 Pneumococcal Vaccine (2 of 2 - PCV) 06/25/2013 06/25/2012 RSV Adult > 60+ Yrs or Pregn ant (1 - 1-dose 75+ series) 2021 Influenza Vaccine (#1) 2025 Hepatitis B Vaccines Aged Out No long er eligible based on patient's age to complete this topic RSV Ped < 20 months Aged Out No longe r eligible based on patient's age to complete this topic Care Teams Cashier Greeter Relationship Specialty Start Date End Date Julianne Mallory MD [address] [id number] PCP - General Internal Medicine 03/23/18
--- OUTSIDE RECORDS SUMMARY | 2025-08-30 16:50 | XMS_ITS | Clinical Summary ---
Author Organization [facility] Address [address] [place] [address] Phone Care Team Providers Care Histology Technologist Name Role Phone Julianne Wellington MD Primary Care Provider [phone] Surgical History Surgery Date Site/Laterality Comments KNEE SURGERY PROCEDURE:KNEE SURGERY Medical History Medical History Date Comments Hypertension DX:Hypertension Hypothyroidism DX:Hypothyroidis m Osteoporosis DX:Osteoporosis Family History Medical History Relation Name Comments Heart disease Mother Relation Name Status Comments Mother Social History Tobacco Use Types Packs/Day Years Used Date Smoking Tobacco: Never Assessed Comments No Sex and Gender Information Value Date Recorded Sex Assigned at Female 08/10/2025 11:41 AM EDT Legal Sex Female 7:23 PM EST Gender Identity Not on file Sexual Orientation Not on file Obstetrics History Para Term AB IAB SAB Ectopic Multiple Livin g Live Births 3 Last Filed Vital Signs Vital Sign Reading Time Taken Comments Blood Pressure - - Pulse - - Temperature - - Respiratory Rate - - Oxygen Saturation - - Inhaled Oxygen Concentration - - Weight 50.8 kg (112 lb) 09/23/2024 9:50 AM EST Height 154.9 cm (5' 1 ) 09/23/2024 9:50 AM EST Body Mass Index 21.16 09/23/2024 9:50 AM EST Plan of Treatment Health Maintenance Due Date Last Done Comments Zoster Vaccines (2 of 3) 04/27/2014 03/02/2014 RSV Immunization Adult Patients (1 - 1-dose 75+ series) 2021 Falls Risk Assessment 10/18/2022 Hepatitis C Screening 10/18/2022 Medicare Annual Wellness Visit 10/18/2022 Social Influencers of Health Screening 10/18/2022 Depression Screening 11/16/2024 COVID-19 Vaccine (8 - 2024-25 season) 2025 08/24/2024, 09/25/2023, 08/15/2022, Additional history exists Influenza Vaccine (#1) 2025 , 09/07/2023, 09/19/2022, Additional history exists Cholesterol Screening (Lipid Panel) 05/26/2030 05/26/2025 DTaP,Tdap,and Td Vaccines (4 - Td or Tdap) 05/02/2032 05/02/2022, 07/23/2011, 05/16/2001 Osteoporosis Screening (Bone Density Screening) 10/27/2032 10/27/2022, 09/24/2020, 09/15/2018 Pneumococcal Vaccine: 50+ Years Completed 05/26/2024, 08/08/2019, 08/24/2017, Additional history exists HIB Vaccines Aged Out No longer eligi ble based on patient's age to complete this topic HPV Vaccines Aged Out No longer eligi ble based on patient's age to complete this topic Hepatitis A Vaccines Aged Out No long er eligible based on patient's age to complete this topic Hepatitis B Vaccines Aged Out No long er eligible based on patient's age to complete this topic IPV Vaccines Aged Out No longer eligi ble based on patient's age to complete this topic MMR Vaccines Aged Out No longer eligi ble based on patient's age to complete this topic Meningococcal ACWY Vaccine Aged Out N o longer eligible based on patient's age to complete this topic Meningococcal B Vaccine Aged Out No l onger eligible based on patient's age to complete this topic RSV Immunization Patients Under 20 months Aged Out No longer eligible based on patient's age to complete this topic Varicella Vaccines Aged Out No longer eligible based on patient's age to complete this topic Procedures Procedure Name Priority Date/Time Associated Diagnosis Comments LIPID PANEL WITH REFLEX TO DIRECT LDL Routine 05/26/2025 9:33 AM EDT Diabetes mellitus, latent Vitamin D deficiency disease 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, or unspecified(403.10) Chronic kidney disease, stage II (mild) [facility] DEXA AXIAL SKELETON Routine 10/27/2022 7:37 AM EST Encounter for screening for osteoporosis from Last 3 Months or Most Recently Relevant to Health Maintenance Results * Lipid panel with reflex to direct LDL (05/26/2025 9:33 AM EDT) Cholesterol 188 0 - 200 mg/dL LAB CHEMISTRY METHOD 05/26/2025 11:40 AM EDT [facility] Triglycerides 111 0 - 150 mg/dL LAB CHEMISTRY METHOD 05/26/2025 11:40 AM EDT [facility] HDL 91 >=40 mg/dL LAB CHEMISTRY METHOD 05/26/2025 11:40 AM EDT [facility] LDL Calculated 75 0 - 100 mg/dL LAB CHEMISTRY METHOD 05/26/2025 11:40 AM EDT [facility] VLDL Cholesterol Luis 22.2 mg/dL LAB CHEMISTRY METHOD 05/26/2025 11:40 AM EDT [facility] Non HDL Chol. (LDL+VLDL) 97 <145 mg/dL LAB CHEMISTRY METHOD 05/26/2025 11:40 AM EDT [facility] Chol/HDL Ratio 2.1 0.0 - 4.4 LAB CHEMISTRY METHOD 05/26/2025 11:40 AM EDT [facility] Blood Venous blood specimen / Unknown Venipuncture / Unknown 05/26/2025 9:33 AM EDT 05/26/2025 10:46 AM EDT us Julianne Wellington MD LAB BLOOD ORDERABLES Final Res ult [facility] [address] [place] [address], [place] [phone] * ALICIA DEXA AXIAL SKELETON (10/27/2022 7:37 AM EST) Anatomical Region Laterality Modality Mammography 10/24/2022 11:1 5 AM EST Narrative 10/27/2022 7:37 AM EST [facility] Diagnostic Imaging Department [address] [place] [address] Patient: EMMANUEL KAURUREEN Goyo TiradoB./Age/Sex: 1945 - 77 - F Unit#: [id number] Location/Status: SPDIMAM/REG CLI Mnemonic/Ordering Site: [facility]/SP[facility]AM Ordering Physician: JULIANNE WELLINGTON MD Alicia Dexa Axial Skeleton - 10/24/22 1237 HISTORY: The patient is a 77-year-old postmenopausal female with clinical concern for metabolic bone disease. FINDINGS: Dual energy x-ray absorptiometry of the lumbar spine and femurs is performed. The mean bone mineral density at L1-3 is 0.874 gm/cm2 which is 75% of that of young normals and 94% of that of age matched controls. This yields a T- score of -2.5 and a Z-score of -0.5 which is diagnostic of osteoporosis. The mean bone mineral density of the femurs bilaterally is 0.783 gm/cm2 which is 78% of that of young normals and 103% of that of age matched controls. This yields a T-score of -1.8 and a Z-score of 0.2 which is diagnostic of osteopenia. IMPRESSION: 1. Osteoporosis. There has been a decrease of 1.4% in bone mineral density in the lumbar spine since the prior examination of 09/24/2020. There has been a decrease of 5.5% in bone mineral density in the right femur and a decrease of 9.1% in bone mineral density in the left femur. 2. FRAX analysis yields a 10-year probability of major osteoporotic fracture of 16.7% and a 10-year probability of hip fracture of 2.9%. Code 61206 Dictating Physician: ALEJANDRA WILKINS MD Electronically Signed by: ALEJANDRA WILKINS MD Dic Date/Time: 10/27/22734 Sign date/Time: 10/27/22736 Procedure Note Alejandra Wilkins MD - 12/18/2023 [facility] Diagnostic Imaging Department [address] [place] [address] Patient: MARLONANNE./Age/Sex: 1945 - 77 - F Unit#: [id number] Location/Status: [facility]ing [facility] Ordering Physician: JULIANNE WELLINGTON MD [facility] Dexa Axial Skeleton - 10/24/22 - 1237 HISTORY: The patient is a 77-year-old postmenopausal female withclinical concern for metabolic bone disease. FINDINGS: Dual energy x-ray absorptiometry of the lumbar spine and femursis performed. The mean bone mineral density at L1-3 is 0.874 gm/cm2 which is75% of that of young normals and 94% of that of age matched controls. This yieldsa T- score of -2.5 and a Z-score of -0.5 which is diagnostic of osteoporosis. The mean bone mineral density of the femurs bilaterally is 0.783 gm/xg5iqtit is 78% of that of young normals and 103% of that of age matched controls.This yields a T-score of -1.8 and a Z-score of 0.2 which is diagnostic ofosteopenia. IMPRESSION: 1. Osteoporosis. There has been a decrease of 1.4% in bone mineraldensity in the lumbar spine since the prior examination of 09/24/2020. There has uziel decrease of 5.5% in bone mineral density in the right femur and a decreaseof 9.1% in bone mineral density in the left femur. 2. FRAX analysis yields a 10-year probability of major osteoporoticfracture of 16.7% and a 10-year probability of hip fracture of 2.9%. Code 69194 Dictating Physician: ALEJANDRA WILKINS MD Electronically Signed by: ALEJANDRA WILKINS MD Dic Date/Time: 10/27/2235 Sign date/Time: 10/27/2237 Julianne Wellington MD IMG BI PROCEDURES Final Result from Last 3 Months or Most Recently Relevant to Health Maintenance Insurance MEDICARE [facility] Care Teams Histology Technologist Relationship Specialty Start Date End Date Julianne Wellington MD [address] [place] [id number] PCP - General Internal Medicine 05/26/25
== END 2025-08-30 13:52 | disposition home or self-care (01) ==
LOC: HO.HSM 13:08
PROVIDERS: PCP Internal Medicine; Visit Provider Psychiatry & Neurology Neurology
DX: G30.9 Alzheimer's disease, unspecified (principal); F02.80 Dementia in other diseases classified elsewhere, unspecified severity, without behavioral disturbance, psychotic disturbance, mood disturbance, and anxiety
CPT/HCPCS: 99214

== ENCOUNTER → 2025-08-30 13:08 | Outpatient (BNVA) | payer MEDICARE, SELFPAY | PROVIDERS: PCP Internal Medicine; Visit Provider Psychiatry & Neurology Neurology | DX: G30.9 Alzheimer's disease, unspecified (principal); F02.80 Dementia in other diseases classified elsewhere, unspecified severity, without behavioral disturbance, psychotic disturbance, mood disturbance, and anxiety | CPT/HCPCS: 99212 ==

== ENCOUNTER 2025-10-05 14:44 | Outpatient (AMB) | payer MEDICARE, SELFPAY ==
--- OUTSIDE RECORDS SUMMARY | 2025-08-29 08:30 | XMS_ITS ---
Author Organization Julianne Mallory MD Address [address] [place] [phone] Care Team Providers Care Sebd Teacher Name Role Phone Julianne Mallory Primary Care Provider [phone] REASON FOR VISIT 3m f/u Hypertension Encounters Encounter Location Date Provider Diagnosis Julianne Mallory MD [address] [place] [phone] 08/29/2025 Julianne Mallory Plan Of Treatment Next Appt Details Provider Name:Julianne Mallory , 06/11/2026 10:00:00 AM, [address] [place] [address], [address], [phone], Progress Notes * Sugar KAUROB:[birth year] (80 yo F)Acc No.[id number]:08/29/2025 Progress Notes Patient: Soni JOHNVERONICAAnne MARIE Provider: Goyo Mallory MD :1945 A ge:80 Y S ex:Female Date:08/29/2025 Address:[address] [place], [place] [phone] Subjective: * Chief Complaints: * 1 . 3m f/u Hypertension. * Medical History: Objective: * Vitals: Past Vitals:* 05/30/2025 Temp:95.3F, HR:76/min, BP:Si tting Right Arm: 112/60mm Hg, Wt:128lbs, BMI:25Index, Ht:60in, Oxygen sat %:97% * 11/22/2024 Temp:96.2F, HR:78/min, BP:Si tting Right Arm: 126/74mm Hg, Wt:124lbs, BMI:24.21Index, Ht:60in, Oxygen sat %:97% * 05/26/2024 Temp:97.8F, HR:71/min, BP:Si tting Right Arm: 122/70mm Hg, Wt:126.6lbs, BMI:24.72Index, Ht:60in, Oxygen sat %:97% Assessment: Plan: * Treatment: * Images: Billing Information: * Visit Code: * Procedure Codes: * Electronic signature of Tala Mallory MD on 10/05/2025 at 08:12 PM EST Sign off status: Pending * Provider: Goyo Mallory MD Date: Generated for Saadia joseph/Radha/Claire on: 12/05/2024 08:12 PM EST
--- OUTSIDE RECORDS SUMMARY | 2025-09-20 10:30 | XMS_ITS ---
Author Organization Julianne Mallory MD Address [address] [place] [phone] Care Team Providers Care Food Beverage Server Name Role Phone Julianne Mallory Primary Care Provider REASON FOR VISIT 4m f/u Hypertension Encounters Encounter Location Date Provider Diagnosis Julianne Mallory MD [address] [place] [address] [place] [phone] 09/20/2025 Julianne Mallory Plan Of Treatment Next Appt Details Provider Name:Julianne Mallory , 06/11/2026 10:00:00 AM, [address] [place] [address], [place] [address], [place], [place], [phone], Progress Notes * Sugar KAUROB:[birth year] (80 yo F)Acc No.[id number]:09/20/2025 Progress Notes Patient: Soni JOHNVERONICAAnne MARIE Provider: Goyo Mallory MD :1945 A ge:80 Y S ex:Female Date:09/20/2025 Address:[address] [place], [place] [id number] Subjective: * Chief Complaints: * 1 . 4m f/u Hypertension. * Medical History: Objective: * [...] Pending * Provider: Goyo Mallory MD Date: 11/20/2024 Generated for Saadia joseph/Radha/Claire on: 12/05/2024 08:12 PM EST
--- NOTE | 2025-10-05 15:14 | A.OFFVIS_ITS ---
Intake Visit Reasons: 1 month Allergies amoxicillin Allergy (Unknown, Verified 08/02/25 12:10) Unknown sulfamethoxazole (From Bactrim) Allergy (Unknown, Verified 08/02/25 12:10) Nausea and Vomiting trimethoprim (From Bactrim) Allergy (Unknown, Verified 08/02/25 12:10) Nausea and Vomiting HPI Comments Details: 80-year-old female presenting with concerns regarding worsening cognitive function. Cognitive impairments began around , leading to an initial evaluation by Dr. Mallory, where borderline cognition was noted through testing. Over the year, symptoms progressed. Amyloid brain PET scan authorized revealed signs consistent with Alzheimer's disease. MRI of brain revealed mild atrophy and mild microvascular ischemic changes. After discussing risks and benefits with the family, Leqembi was started in August of 2025. She has finished 2nd treatment without any complications. Overall she was feeling okay. No new symptoms. [facility] Medical History (Updated 08/07/25 @ 13:40 by Surendra Ferraro MD) Alzheimer disease Surgical History (Updated 08/02/25 @ 12:07 by Nicko Vences [facility]) History of cataract surgery History of dilatation and curettage History of mandibular surgery S/P right knee arthroscopy Family History (Updated 08/02/25 @ 12:09 by Nicko Vences CMA) Father Alzheimer disease Son IBS (irritable bowel syndrome) Daughter IBS (irritable bowel syndrome) Review of Systems Narrative No new symptoms Physical Exam Neuro Other: Mental Status: Alert and oriented to person, place, and time. Normal attention. Normal spontaneous speech, fluency, and comprehension. Cranial Nerves: CN II: Visual head full to confrontation, visual acuity intact. CN III, IV, : Pupils equal, round, reactive to light and accommodation. Extraocular movements are normal. CN V: Facial sensation is normal. CN VII: Facial movements symmetrical. CN VIII: Hearing intact to bedside conversation is normal. CN IX, X: Palate elevates symmetrically. CN XI: Shoulder shrug and head turn symmetrical. CN XII: Tongue midline without atrophy or fasciculations. Extrapyramidal: Full facial expressions and blinking. No rigidity. Movements are appropriate with no tremor or abnormality. Speech: Normal; no dysarthria or tremor. Assessment & Plan Assessment & Plan (1) Alzheimer disease: Comment: Labs at [facility] in May 2025: CMP ok, LFTs ok, TSH 1.14 MRI brain WO at [facility] in Nov 2024: Mild atrophy and mild to mod MVD Amyloid PET at [facility] in May 2025: + for amyloid load suggestive of AD pTau 217 in Jan 2025: 0.89 (N:<0.18). 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 Noncontrast MRI 2. If MRI is okay continue infusion treatment with Leqembi 3. Repeat MRI before 5th and 7th treatment Orders: Orders MR head/brain wo con Today F02.80 - Dementia in other diseases classified elsewhere, unspecified severity, without behavioral disturbance, psychotic disturbance, mood disturbance, and anxiety, G30.9 - Alzheimer's disease, unspecified Coding Level of Care Code Est Pt Level 3 (87514) Diagnoses Alzheimer disease G30.9; F02.80
--- OUTSIDE RECORDS SUMMARY | 2025-10-05 20:12 | XMS_ITS | Clinical Summary ---
Author Organization [facility] Address [address] [place] [address] Phone Care Team Providers Care General Distillery Worker Name Role Phone Julianne Wellington MD Primary Care Provider [phone] Surgical History Surgery Date Site/Laterality Comments KNEE [...] 09/23/2024 9:50 AM EST Plan of Treatment Upcoming Encounters Date Type Department Care Team (Late st Contact Info) Description 12/01/2025 10:00 AM EST Appointment [facility] [address] [address] 12/01/2025 10:30 AM EST Appointment [facility] Bone Density [address] [place] [address] Health Maintenance Due Date Last Done Comments Zoster Vaccines (2 of 3) 04/27/2014 03/02/2014 RSV Immunization Adult Patients (1 - 1-dose 75+ series) 2021 Falls Risk Assessment 10/18/2022 Hepatitis C Screening 10/18/2022 Medicare Annual Wellness Visit 10/18/2022 Social Influencers of Health Screening 10/18/2022 Depression Screening 11/16/2024 COVID-19 Vaccine ( season) 2025 08/24/2024, 09/25/2023, 08/15/2022, Additional history [...] unspecified(403.10) Chronic kidney disease, stage II (mild) [facility] DEXA AXIAL SKELETON Routine 10/27/2022 7:37 AM EST Encounter for screening for osteoporosis from Last 3 Months or Most Recently Relevant to Health Maintenance Results * Lipid panel with reflex to direct LDL (05/26/2025 9:33 AM EDT) Cholesterol 188 0 - 200 mg/dL LAB CHEMISTRY METHOD 05/26/2025 11:40 AM EDT [facility] Triglycerides 111 0 - 150 mg/dL LAB CHEMISTRY METHOD 05/26/2025 11:40 AM EDT [facility] HDL 91 >=40 mg/dL LAB CHEMISTRY METHOD 05/26/2025 11:40 AM EDT [facility] LDL Calculated 75 0 - 100 mg/dL LAB CHEMISTRY METHOD 05/26/2025 11:40 AM EDT [facility] VLDL Cholesterol Luis 22.2 mg/dL LAB CHEMISTRY METHOD 05/26/2025 11:40 AM T [facility] Non HDL Chol. (LDL+VLDL) 97 <145 mg/dL LAB CHEMISTRY METHOD 05/26/2025 11:40 AM EDT [facility] Chol/HDL Ratio 2.1 0.0 - 4.4 LAB CHEMISTRY METHOD 05/26/2025 11:40 AM T [facility] Blood Venous blood specimen / Unknown Venipuncture / Unknown 05/26/2025 9:33 AM EDT 05/26/2025 10:46 AM EDT us Julianne Wellington MD LAB BLOOD ORDERABLES Final Res ult [facility] [address] [place] [address], * ALICIA DEXA AXIAL SKELETON (10/27/2022 7:37 AM EST) Anatomical Region Laterality Modality Mammography 10/24/2022 11:1 5 AM EST Narrative 10/27/2022 7:37 AM EST [facility] Diagnostic Imaging Department [address] [place] [address] Patient: MARLONANNE D.O.B./Age/Sex: 1945 - 77 - F Unit#: [id number] [facility] Ordering Physician: JULIANNE WELLINGTON MD Alicia Dexa Axial Skeleton - 10/24/22 - 1237 [...] probability of hip fracture of 2.9%. Code 00935 Dictating Physician: ALEJANDRA WILKINS MD Electronically Signed by: ALEJANDRA WILKINS MD Dic Date/Time: 10/27/22734 Sign date/Time: 10/27/22736 Procedure Note Alejandra Wilkins MD - 12/18/2023 [facility] Diagnostic Imaging Department [address] [place] [address] Patient: MARLONANNE/Age/Sex: 1945 - 77 - F Unit#: [id number] [facility] Ordering Physician: JULIANNE WELLINGTON MD Alicia Dexa Axial Skeleton - 10/24/22 - 1237 [...] density of the femurs bilaterally is 0.783 gm/sa3ftlxd is 78% of that of young normals [...] probability of hip fracture of 2.9%. Code 82758 Dictating Physician: ALEJANDRA WILKINS MD Electronically Signed by: ALEJANDRA WILKINS MD Dic Date/Time: 10/27/22 0735 Sign date/Time: 10/27/2237 Julianne Wellington MD IM BI PROCEDURES Final Result from Last 3 Months or Most Recently Relevant to Health Maintenance Insurance MEDICARE [facility] Care Teams General Distillery Worker Relationship Specialty Start Date End Date Julianne Wellington MD [address] [place] [address] PCP - General Internal Medicine 05/26/25
--- OUTSIDE RECORDS SUMMARY | 2025-10-05 20:12 | XMS_ITS | Encounter Summary ---
Author Organization [facility] Address [address] [place] [phone] Phone Care Team Providers Care Law Examiner Name Role Phone Ash Mallory MD Primary Care Provider [phone] Mario Garg DMD, MD Unavailable [phone] Encounter Details Date Type Department Care Team (Late st Contact Info) Description 05/09/2020 Procedure Pass [facility] PERIOPERATIVE DEPT [address] [place] [phone] Social History Tobacco Use Types Packs/Day Years Used Date Smoking Tobacco: Never Alcohol Use Standard Drinks/Week Comments Not Asked 1 (1 standard drink = 0.6 oz pur e alcohol) Comments Unknown Sex and Gender Information Value Date Recorded Sex Assigned at Female 11/23/2017 9:29 AM EST Legal Sex Female 6:58 PM EST Gender Identity Female 05/29/2020 1:14 PM EDT Sexual Orientation Not on file documented as of this encounter Plan of Treatment Not on file documented as of this encounter Visit Diagnoses Not on filedocumented in this encounter Care Teams Law Examiner Relationship Specialty Start Date End Date Ash Mallory MD [address] [place] [phone] [email or web address] PCP - General 05/16/14 Mario Garg DMD, MD [address] [place] [address] [address] [place] [address] [email or web address] 04/30/16 documented as of this encounter Additional Source Comments The information contained in this document represents components of the legal health record. It is not the complete legal health record.[facility]
--- OUTSIDE RECORDS SUMMARY | 2025-10-05 20:12 | XMS_ITS | Patient Health Record ---
Author Organization [facility] Address [address] [id number] Care Team Providers Care Blending Machine Operator Name Role Phone Julianne Mallory Primary Care Provider [phone] Allergies Allergen (clinical drug ingredient) Drug/Non Drug Allergy documented on EMR Reaction Allergy Type Onset Date Status amoxicillin Amoxicillin Unknown Drug Allergy Act regis sulfamethoxazole / trimethoprim Bactrim nausea and vomiting Drug Allergy Active Results Component Value Reference Range Notes Urinalysis, Complete-[id number] Reviewed date:06/07/2025 04:48:54 PM Interpretation: Performing Lab:[email or web address], [place], Phone - [phone], Director - Nasrin Notes/Report: Specific [place] 1.015 1.005-1.030 pH 7.0 5.0-7.5 Urine-Color Yellow [...] Bacteria None seen None seen/Few APOE Alzheimer's Risk-795817 Reviewed date:06/07/2025 04:48:55 PM Interpretation: Performing Lab:[facility], [facility], [place], Phone - [phone], Director - Nasrin Notes/Report: Methodology: Patient DNA is assayed for the APOE genotype by PCR amplification of a specific region in exon 4 of the APOE gene followed by digestion with restriction enzyme Vehicle Upholsterer I and separation of fragments by polyacrylamide [...] For inquiries or genetic consultation, please call [facility] at . Comment: INFORMATION ABOUT THE APOE [...] the APOE4 variant and by approximately 10 mk93-hvdb for individuals with two copies of this [...] developed and its performance characteristics determined by [employer]. It has not been cleared or approved by the Food and Drug Administration. The FDA has determined that such clearance or approval is not necessary. REFERENCES Sreedhar A et al. Sex modifies the APOE-related risk of developing Alzheimer disease. Annal Neurol 2014;75(4):563-573 Sawyer BROWN. Alzheimer Disease Overview. GeneReviews (internet). Dylan URIBE et al., editors. State mental health facility: [facility], [place], [place]. Last revised 2014. Prosper JS et al. Genetic counseling and testing for Alzheimer disease: Joint practice guidelines of the [place] [employer] and the National Society of Genetic Counselors. Marianne in Med 2011;136597-603. Jae SALINAS. Apolipoprotein E: Implications for AD neurobiology, epidemiology and risk assessment. Neurobiology of Aging 2011;32:778-790 [facility] Informed Consent Fo Reviewed date:06/07/2025 04:48:55 PM Interpretation: Performing Lab:[facility], Charline Garcia, [address], [place], Phone - [phone], Director - [facility] Notes/Report: [facility] Informed Consent Form [facility] Informed Consent Form 02 Please Fax back to [phone]. Many states require laboratories to have documentation [...] of the sample when testing is complete. [facility] did not receive any documentation of informed consent for above mentioned patient and ordered tests. Please check the statement applicable to this patient and sign below so that [facility] may release the results for this patient. . [] I authorize and confirm patient consent for the above mentioned genetic test(s). . [] I have provided appropriate informed consent for the above mentioned test(s) and documentation of this consent is maintained in the patient record. . . Health care provider signature Da te . Printed name . Fax back to [facility] at [phone] . [facility] COMPREHENSIVE METABOLIC PANE L Reviewed date:05/26/2025 02:45:23 PM Interpretation: Performing [...] 3.2-5.0 g/dL Total Bilirubin 0.6 0.0-1.4 mg/dL HEMOGLOBIN A1C Reviewed date:05/26/2025 02:45:23 PM Interpretation: Performing Lab: Notes/Report: Hemoglobin A1C 5.9 <6.5 % Mean Bld Glu Estim. 123 LIPID PANEL WITH REFLEX TO D IRECT [...] Notes/Report: Vit D, 25-Hydroxy 34.6 30.0-80.0 ng/mL Phosphorylated Tau 217 (pTau -217) Reviewed date:01/30/2025 06:06:41 PM Interpretation: Performing Lab:[facility], [address] [place] [address], Phone - [phone], Director - Ron Notes/Report: Test(s) 810587-m-wwt500 was developed and its performance characteristics determined by [facility]. It has not been cleared or approved by the Food and Drug Administration. p-qbw159 0.89 0.00-0.18 pg/mL Clinical cutoff value was established using samples from a patient cohort characterized with amyloid PET data. A p-axk826 value of >0.18 is a reported surrogate marker for beta amyloid pathology, and can be used to facilitate biological identification of Alzheimer's disease (1). p-xmi793 has also been used in clinical trials to monitor patients on anti-amyloid therapy (2,3). Test performed by [employer] chemiluminescent enzyme immunoassay (CLEIA). Values obtained with different methods cannot be used interchangeably. The validated limit of quantification is 0.06 pg/mL. Assay detection limit is 0.03 pg/mL. Footnotes 1. Amador Tong, et al. Diagnostic Accuracy of a Plasma Phosphorylated Tau 217 Immunoassay for Alzheimer Disease Pathology. RG neurology (2023). 2. Amador Tong, et al. Differential roles of A42/40, p-afz307 and p-cpc431 for Alzheimer's trial selection and disease monitoring. Nature medicine 28.12 (2021): 2197-1782. 3. Jenn CARRIZALES, Rachelle M, Xenia SC, et al. Association of [place] Treatment With Exploratory Plasma Biomarkers in Early Symptomatic Alzheimer Disease: A Secondary Analysis of the TRAILBLAZER-ALZ Randomized Clinical Trial . RG Neurol. 2021;79(12):3817-0713. TSH-560933 Reviewed date:01/30/2025 06:06:41 PM Interpretation: Performing Lab:[facility], [address] [place] [address], Phone - [phone], Director - [facility] [place] [place] Notes/Report: Test(s) 048445-o-dxx297 was developed and its performance characteristics determined by [facility]. It has not been cleared or approved by the Food and Drug Administration. TSH 1.630 0.450-4.500 uIU/mL Vitamin A80-590381 Reviewed date:01/30/2025 06:06:41 PM Interpretation: Performing Lab:[facility], [address] [facility], Phone - [phone], Director - [facility] [place] [place] Notes/Report: Test(s) 411148-t-ofv172 was developed and its performance characteristics determined by [facility]. It has not been cleared or approved by the Food and Drug Administration. Vitamin B12 288 108-6713 pg/mL MR Brain WO Reviewed date:12/12/2024 04:02:24 PM Interpretation: Performing Lab: Notes/Report: LP+Non-HDL Cholesterol-70396 5 Reviewed date:12/02/2024 02:25:44 PM Interpretation: Performing Lab:[facility] [place], [address] [facility], Phone - [phone], Director - MDJoy Notes/Report: Cholesterol, Total 241 100-199 mg/dL Triglycerides 91 0-149 mg/dL HDL Cholesterol 99 >39 mg/dL VLDL Cholesterol Luis 15 5-40 mg/dL LDL Chol Calc (NIH) 127 0-99 mg/dL Non-HDL Cholesterol 142 0-129 mg/dL Comp. Metabolic Panel (14)-3 Reviewed date:12/02/2024 02:25:44 PM Interpretation: Performing Lab:[facility] [place], [address] [facility], Phone - [phone], Director - MDNeyy Notes/Report: Glucose 111 70-99 mg/dL BUN 14 [...] 0-40 IU/L ALT (SGPT) 15 0-32 IU/L Albumin/Creatinine Ratio,Uri ne-774151 Reviewed date:12/02/2024 02:25:44 PM Interpretation: Performing Lab:[facility] [place], [address] [facility], [place], Phone - [phone], Director - MDJoy Notes/Report: Creatinine, Urine 63.6 Not Estab. mg/dL Albumin, Urine 5.0 Not Estab. ug/mL Alb/Creat Ratio 8 0-29 mg/g creat Normal: 0 - 29 Moderately increased: 30 - 300 Severely increased: >300 Vitamin D, 72-Rzhpbdv-523181 Reviewed date:12/02/2024 02:25:44 PM Interpretation: Performing Lab:[facility] [place], [address] [place] [address], Phone - [phone], Director - Nasrin Notes/Report: Vitamin D, 25-Hydroxy 38.2 30.0-100.0 ng/mL Vitamin D deficiency has been defined by the [place] of Medicine and an Endocrine Society practice guideline as a level of serum 25-OH vitamin D less than 20 ng/mL (1,2). The Endocrine Society went on to further define vitamin D insufficiency as a level between 21 and 29 ng/mL (2). 1. IOM ([place] of Medicine). 2010. Dietary reference intakes for calcium and D. [place]: The National Academies Press. 2. Keeley MF, Michael NC, Michael MCKEE, et al. Evaluation, treatment, and prevention of vitamin D deficiency: an Endocrine Society clinical practice guideline. JCEM. 2010; 96(7):1911-30. TSH-998916 Reviewed date:12/02/2024 02:25:44 PM Interpretation: Performing Lab:[facility] [place], [address] [place] [address], Phone - [phone], Director - KYCherise Notes/Report: TSH 2.050 0.450-4.500 uIU/mL Urinalysis, Complete-800975 Reviewed date:12/02/2024 02:25:44 PM Interpretation: Performing Lab:[facility] [place], [address] [place] [address], Phone - [phone], Director - KYCherise Notes/Report: Specific [place] 1.011 1.005-1.030 pH 6.5 5.0-7.5 Urine-Color Yellow [...] seen /lpf Bacteria None seen None seen/Few Folate (Folic Acid), Serum-0 79914 Reviewed date:12/02/2024 02:25:44 PM Interpretation: Performing Lab:[facility] [place], [address] [place] [address], Phone - [phone], Director - Nasrin Notes/Report: Folate (Folic Acid), Serum 14.6 >3.0 ng/mL A serum folate concentration of less than 3.1 ng/mL is considered to represent clinical deficiency. Thyroxine (T4) Free, Direct- 608493 Reviewed date:12/02/2024 02:25:44 PM Interpretation: Performing Lab:[facility] [place], [address] [place] [address], [place], Phone - [phone], Director - Nasrin Notes/Report: T4,Free(Direct) 1.59 0.82-1.77 ng/dL Vitamin A00-100037 Reviewed date:12/02/2024 02:25:44 PM Interpretation: Performing Lab:[facility] [place], [address] [place] [address], [place], Phone - [phone], Director - Nasrin Notes/Report: Vitamin B12 716 262-9244 pg/mL Hemoglobin S4i-686271 Reviewed date:12/02/2024 02:25:44 PM Interpretation: Performing Lab:[facility] [place], [address] [place] [address], Phone - [phone], Director - Ell[place]ogo Notes/Report: Hemoglobin A1c 5.9 4.8-5.6 % . Prediabetes: 5.7 - 6.4 Diabetes: >6.4 Glycemic control for adults with diabetes: <7.0 IMGEAP Reviewed date:12/02/2024 02:25:44 PM Interpretation: Performing Lab: Notes/Report: See Note [facility], a member of [facility] PROCEDURE: Noncontrast MRI of the brain. [...] Signed Date: 12/02/2024 10:21 ET Workstation ID: [id number] Transcribed By: Self Edit Transcribed Date: 12/02/2024 10:12 ET Reason For Referral Reason faxed Diagnosis 1 Alzheimer's disease with late onset (G30.1) Referral Organization [facility] Referring Provider First Name Julianne Referring Provider Last Name Mohamud Referring Provider Speciality Internal M edicine Referred Provider Surendra Ferraro Referred Provider Specialty Neurology General Notes Danika RODRIGUEZ 05/16 02:23:21 PM [facility]2025 03:57:10 PM >requested notes Referral Priority [...] Vaccine Route Administration Date Status Comme nts *Influenza, High Dose Seasonal, Quadrivatent Unknown 09/19/2022 Administered *Influenza, High Dose Seasonal, Quadrivatent Unknown 09/07/2023 Administered *Pneumococcal polysaccharide PPV23 Unknown 08/24/2017 Administered *PREVNAR 20 IM Intramuscular 05/26/2024 Administered *Td (adult) preservative free Unknown 05/16/2001 Administered *Td (adult) preservative free Unknown 07/23/2011 Administered *Td (adult) preservative free IM Intramuscular 05/02/2022 Administered COVID 19 (Pfizer 12+) Unknown 04/04/2022 Administered COVID COMIRNATY Pfizer Unknown 09/25/2023 Administered COVID-19 Pfizer BiValent Booster Unknown 08/15/2022 Administered XELOU-02-Wskzby Vaccine Unknown 02/02/2021 Administered QQFUK-10-Xzbxnh Vaccine Unknown 02/23/2021 Administered KFQYD-18-Jvrjyj Vaccine Unknown 10/16/2021 Administered Influenza Unknown 07/17/2016 Administered Influenza Unknown 08/24/2017 Administered Influenza IM Intramuscular 07/22/2018 Administered Influenza Unknown 08/30/2020 Administered Influenza Unknown 08/13/2021 Administered Influenza, high dose seasonal Unknown 09/02/2020 Administered Per Patient Pneumococcal polysaccharide PCV 13 Unknown 08/08/2019 Administered Pneumococcal polysaccharide PPV23 Unknown 11/16/2010 Administered Pneumococcal polysaccharide PPV23 Unknown 07/23/2011 Administered Zoster Unknown 03/02/2014 Administered Social History [...] Risk Notes Problem Benign neoplasm of bone (17184044) Benign neoplasm of bone and articular cartilage, 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) Active confirmed Problem Autoimmune thyroiditis (43508296) Autoimmune thyroiditis (E06.3) Active confirmed Problem Vitamin D deficiency (81239929) Vitamin D deficiency, unspecified (E55.9) Active confirmed Problem Mixed hyperlipidemia (371748559) Mixed hyperlipidemia (E78.2) Active confirmed Problem Alzheimer's disease with early onset (202423253) Alzheimer's disease with early onset (G30.0) Active confirmed Problem Alzheimer's disease with late onset (336431037) Alzheimer's disease with late onset (G30.1) Active confirmed Problem Disorder of hypoglossal nerve (38061792) 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) Active confirmed Problem Sensorineural hearing loss of bilateral ears (disorder) (242302738) Sensorineural hearing loss, bilateral (H90.3) Active confirmed Problem Chronic kidney disease due to hypertension (376195943837773) Hypertensive chronic kidney disease with stage 1 through stage 4 chronic kidney disease, or unspecified chronic kidney disease (I12.9) Active confirmed Problem Chronic rhinitis (19432965) Chronic rhinitis (J31.0) Active confirmed Problem Rosacea (730803964) Rosacea, unspecified (L71.9) Active confirmed Problem Localized, primary osteoarthritis of the hand (942550574) 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) Active confirmed Problem Age-related osteoporosis (935049992) Age-related osteoporosis without current pathological fracture (M81.0) Active confirmed Problem Chronic kidney disease stage 2 (956383704) Chronic kidney disease, stage 2 (mild) (N18.2) Active confirmed Problem Impaired fasting glucose (955405478) Impaired fasting glucose (R73.01) Active confirmed Problem Preoperative cardiovascular examination (661214716) Encounter for preprocedural cardiovascular examination (Z01.810) Active confirmed Problem Prediabetes (596771250) Prediabetes (R73.03) Active confirmed Problem Moderate dementia (disorder) (658544078722914) Dementia in other diseases classified elsewhere, moderate, without behavioral disturbance, psychotic disturbance, mood disturbance, and anxiety (F02.B0) Active confirmed Problem Mild cognitive disorder (711155402) Mild cognitive impairment of uncertain or unknown etiology (G31.84) Inactive confirmed Problem Age-related nuclear cataract of right eye (628001005967223) Age-related nuclear cataract, right eye (H25.11) Problem resolved confirmed Problem Age-related nuclear cataract of left eye (935083915722720) Age-related nuclear cataract, left eye (H25.12) Problem resolved confirmed Problem Derangement of posterior horn of lateral meniscus (16474879) Derangement of posterior horn of lateral meniscus due to old tear or injury, right knee (M23.251) Problem resolved confirmed Vital Signs Heart Rate 76 /min 05/30/2025 Temperature 95.3 degrees Fahrenheit 05/30/2025 Oximetry 97 % 05/30/2025 Blood pressure diastolic 60 mm Hg 05/30/2025 Height 60 in 05/30/2025 Blood pressure systolic 112 mm Hg 05/30/2025 Weight 128 lbs 05/30/2025 BMI 25.0 kg/m2 05/30/2025 Encounters Encounter Location Date Provider Diagnosis Julianne Mallory MD [address] [id number] 11/22/2024 Julianne Mallory Hypertensive chronic kidney disease [...] or unknown etiology G31.84 Julianne Mallory MD [address] [id number] 01/18/2025 Julianne Mallory Hypertensive chronic kidney disease with stage 1 through stage 4 chronic kidney disease, or unspecified chronic kidney disease I12.9 and Unspecified dementia, mild, without behavioral disturbance, psychotic disturbance, mood disturbance, and anxiety F03.A0 Julianne Mallory MD [address] [id number] 05/30/2025 Julianne Mallory Hypertensive chronic kidney disease [...] for screening for other viral diseases Z11.59 Julianne Mallory MD [address] [id number] 01/18/2025 Julianne Mallory MD [address] [id number] 07/03/2025 Julianne Mallory MD [address] [id number] 01/28/2025 Julianne Mallory Alzheimer's disease with early onset G30.0 Julianne Mallory MD [address] [place] [address] [id number] 01/31/2025 Julianne Mallory MD [address] [id number] 02/08/2025 Julainne Mallory MD [address] [place] [address] [id number] 02/08/2025 Julianne Mallory MD [address] [place] [address] [id number] 03/29/2025 Julianne Mallory MD [address] [id number] 03/30/2025 Julianne Mallory Alzheimer's disease with early onset G30.0 Julianne Mallory MD [address] [place] [address] [id number] 05/12/2025 Julianne Mallory MD [address] [id number] 05/23/2025 Julianne Mallory MD [address] [id number] 08/10/2025 Julianne Mallory MD [address] [id number] 09/15/2025 Julianne Mallory Assessments Encounter Date Diagnosis (ICD Code) Assessment [...] to minimize risk for progressive cognitive impairment 01/18/2025 Hypertensive chronic kidney disease with stage [...] have a healthcare proxy and power of trust and estates attorney and other legal matters taken care of already 01/28/2025 Alzheimer's disease with early onset (ICD-10 - G30.0) 03/30/2025 Alzheimer's disease with early onset (ICD-10 - G30.0) 11/22/2024 Chronic kidney disease, stage 2 (mild) (ICD-10 - N18.2) Stable on prior labs as reviewed with estimated GFR in the 70s. Continue control of comorbidity of hypertension 05/30/2025 Hypertensive chronic kidney disease with stage [...] E06.3) Stable on recent labs as reviewed 11/22/2024 Age-related osteoporosis without current pathological fracture (ICD-10 - M81.0) She continues with some resistance exercise. 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 05/30/2025 Prediabetes (ICD-10 - R73.03) Stable on recent labs as reviewed. Continue exercise 11/22/2024 Vitamin D deficiency, unspecified (ICD-10 - [...] REFLEX TO DLDL 05/25/2023 CBC 05/25/2023 CBC 04/22/2021 CBC 05/02/2022 CBC 10/24/2021 COMPREHENSIVE METABOLIC PANEL 05/25/2023 COMPREHENSIVE METABOLIC PANEL 10/24/2021 COMPREHENSIVE METABOLIC PANEL 04/22/2021 COMPREHENSIVE METABOLIC PANEL 05/02/2022 GLYCOHEMOGLOBIN PROFILE 05/02/2022 GLYCOHEMOGLOBIN PROFILE 04/22/2021 GLYCOHEMOGLOBIN PROFILE 10/24/2021 GLYCOHEMOGLOBIN PROFILE 05/25/2023 HEPATITIS C VIRUS SCREEN 05/25/2023 LIPID PROFILE 05/25/2023 LIPID PROFILE 04/22/2021 LIPID PROFILE 05/02/2022 LIPID PROFILE 10/24/2021 FREE T4 10/24/2021 FREE T4 05/02/2022 FREE T4 05/25/2023 TSH 05/25/2023 TSH 05/02/2022 TSH 10/24/2021 URINALYSIS 10/24/2021 URINALYSIS 05/02/2022 URINALYSIS 04/22/2021 URINALYSIS 05/25/2023 MICROALB/CREAT RATIO, RANDOM 10/24/2021 VITAMIN D, 25-HYDROXY 10/24/2021 VITAMIN D, 25-HYDROXY 05/25/2023 VITAMIN D, 25-HYDROXY 05/02/2022 VITAMIN D, 25-HYDROXY 04/18/2020 VITAMIN D, 25-HYDROXY 04/22/2021 COLOGUARD 02/25/2017 [facility] Dexa Axial Skeleton 05/26/2024 ANTI-HEPATITIS C W/RFLX HCV QNT 05/02/20 22 ANTI-HEPATITIS C W/RFLX HCV QNT 05/25/20 23 MMR (MEASLES, MUMPS, RUBELLA) IGG TITER 04/18/2020 Hemoglobin R6i-194683 05/26/2024 Hemoglobin O6u-564806 05/30/2025 Thyroxine (T4) Free, Direct-810052 05/30 Thyroxine (T4) Free, Direct-021164 05/26 Urinalysis, Complete-210486 05/26/2024 TSH-005112 05/26/2024 TSH-419169 05/30/2025 CBC With Differential/Platelet-410461 CBC With Differential/Platelet-517159 Vitamin D, 31-Ezwpavs-974036 05/26/2024 Vitamin D, 74-Jmasreg-189020 05/30/2025 Comp. Metabolic Panel ([phone] Comp. Metabolic Panel ([phone] 2023 LP+Non-HDL Cholesterol-985979 05/26/2024 LP+Non-HDL Cholesterol-751842 05/30/2025 HCV Antibody-799585 05/30/2025 HCV Antibody-627369 05/26/2024 BD BONE DENSITY DXA AXIAL SKELETON 05/30 [...] Provider Name:Julianne Mallory , 06/11/2026 10:00:00 AM, [address] [place] [address], [address], [place], [place], [id number], Insurance Providers Payer Name Payer Address Payer Phone Subscriber Number Group Number Insured Name Patient Relationship to Insured Coverage Start Date Coverage End Date MEDICARE [address] [place] [phone] [id number] Anne Kaur Self - patient is the insured [facility] [employer] [address] [place] [address] [phone] [id number] Anne Kaur Self - patient is the [...]
--- OUTSIDE RECORDS SUMMARY | 2025-10-05 20:12 | XMS_ITS | Clinical Summary ---
Author Organization [facility] Address [address] [place] [id number] Phone Care Team Providers Care Weapons System Instrument Mechanic Name Role Phone Ash Mallory MD Primary Care Provider [phone] Mario Garg DMD, MD Unavailable Allergies Active Allergy Reactions Criticality Noted Date Comments Amoxicillin-Pot Clavulanate 04/08/20 18 Meperidine Vomiting,Nausea Only 05/24/2012 Sulfamethoxazole-Trimethoprim 2017 Medications levothyroxine (SYNTHROID, LEVOTHROID) 75 MCG tablet Take 50 mcg by mouth daily. 2 Active atorvastatin (LIPITOR) 40 MG tablet Take 1 tablet by mouth nightly. 2 Active lisinopril (PRINIVIL,ZESTRI L) 10 MG tablet Take 10 mg by mouth daily. 2 Active aspirin buffered 325 mg Tab tablet Take 325 mg by mouth daily. Active aspirin 81 MG EC tablet Take 81 mg by mouth daily. Active cholecalciferol (VITAMIN D3) 2,000 unit capsule Take 2,000 Units by mouth daily. Active therapeutic multivitamin tablet Take 1 tablet by mouth daily. Active famotidine (PEPCID) 20 MG tablet Take 20 mg by mouth daily as needed for heartburn. Active acetaminophen (TYLENOL) 325 mg tablet Take 2 tablets (650 mg total) by mouth every 6 (six) hours as needed for mild pain or fever. 30 tablet 0 Active Additional Information Patient not taking.Reported on 12/06/2020 ibuprofen (ADVIL,MOTRIN) 600 MG tablet Take 1 tablet (600 mg total) by mouth every 6 (six) hours as needed for pain (specific location in comments). 30 tablet 0 Active oxyCODONE 5 MG immediate release tablet Take 1 tablet (5 mg total) by mouth every 4 (four) hours as needed for moderate pain. 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 Not on tod e 03/26/2023 Are you concerned about learning? Not on file 03/26/2023 No 03/26/2023 No 03/26/2023 Digital Access Answer Date Recorded No 04/12/2023 No 04/12/2023 No 04/12/2023 Reliable internet access at home? Not on file 04/12/2023 Device with a working camera? Not on file Comments No Sex and Gender Information Value Date Recorded Sex Assigned at Female 11/23/2017 9:29 AM EST Legal Sex Female 6:58 PM EST Gender Identity Female 05/29/2020 1:14 PM EDT Sexual Orientation Not on file Last Filed Vital Signs Vital Sign Reading Time Taken Comments Blood Pressure 138/83 12/06/2020 11:36 AM EST Pulse 86 12/06/2020 11:36 AM EST Temperature 36.4 C (97.5 F) 12/06/2020 11:36 AM EST Respiratory Rate 18 05/10/2020 2:53 PM EDT Oxygen Saturation 97% 12/06/2020 11:36 AM EST Inhaled Oxygen Concentration - - Weight 59 kg (130 lb) 05/09/2020 8:40 PM EDT Height 152.4 cm (5') 05/09/2020 8:40 PM EDT Body Mass Index 25.39 05/09/2020 8:40 PM EDT Plan of Treatment Health Maintenance Due Date Last Done Comments Adult Td,Tdap Booster 1946 LIPID PANEL 1946 TSH LEVEL 1946 DEPRESSION SCREENING 1958 HEPATITIS C SCREENING 1964 ZOSTER VACCINES (1 of 2) 1996 OSTEOPOROSIS SCREENING INITI AL (ONE-TIME) 2011 CREATININE LEVEL 05/10/2021 05/10/2020, 06/24/2012, 05/24/2012 POTASSIUM LEVEL 05/10/2021 05/10/2020, 06/24/2012, 05/24/2012 RSV VACCINE (1 - 1-dose 75+ series) 2021 INFLUENZA VACCINE (#1) 2025 0, 08/24/2017, 09/05/2016 COVID-19 VACCINE (3 - 2024-2 6 season) 2025 02/23/2021, 02/02/2021 PNEUMOCOCCAL VACCINES (50+ years) Completed 08/08/2019, 08/24/2017 SMOKING STATUS SCREENING (On ce After 26 Yrs) Completed 12/06/2020 HEPATITIS A VACCINES Aged Out No long er eligible based on patient's age to complete this topic HIB VACCINES Aged Out No longer eligi ble based on patient's age to complete this topic IPV VACCINES Aged Out No longer eligi ble based on patient's age to complete this topic MENINGOCOCCAL VACCINES (ACWY) Aged Out No longer eligible based on patient's age to complete this topic MENINGOCOCCAL VACCINES (B) Aged Out N o longer eligible based on patient's age to complete this topic Medical Devices Implanted Type Area Kiln Pusher Device Identifier Shelf Expiration Date Model / Serial / Lot Kit Graft 2.5x5.0cm Md Bone Infuse Allo Protein Collagen Absorbable Water Syringe Sponge - [id number] Implanted:Qty: 1 on 05/09/2020 by Mario Garg DMD, MD at [facility] [employer] [facility] B[employer]ET[employer]UE Right: Mandible [employer] 07/16/2021 [id number] / / [id number] F Screw Bone 2.0x10.0mm Matrixmandible Titanium Self Tapping Pk/5ea - [id number] Implanted:Qty: 1 on 05/09/2020 by Mario Garg DMD, MD at [facility] Right: Mandible SYNTHES 04.503.41 0.05 / / Screw Bone 2.0x12.0mm Matrixmandible Titanium Self Tapping Pk/5ea - [id number] Implanted:Qty: 5 on 05/09/2020 by Mario Garg DMD, MD at [facility] Right: Mandible SYNTHES 04.503.41 2.05 / / Screw Bone 2.0x14mm Matrixmandible Titanium Self Tapping Pk/5ea - [id number] Implanted:Qty: 1 on 05/09/2020 by Mario Garg DMD, MD at [facility] Right: Mandible SYNTHES 04.503.41 4.05 / / Graft Tissue 1 To 8mmx15 Freeze Dried Cancellous Crushed - [id number] Implanted:Qty: 1 on 05/09/2020 by Mario Garg DMD, MD at [employer] [facility] [employer] Right: Mandible [employer] 11/29/2024 CAN15 / [id number] / Plate Printed 3d Mandible Titanium Trumatch Mandible Medium - [id number] Implanted:Qty: 1 on 05/09/2020 by Mario Garg DMD, MD at [facility] [employer] [facility] Right: Mandible SYNTHES [id number] / / Explanted Type Area Kiln Pusher Device Identifier Shelf Expiration Date Model / Serial / Lot Plate Explanted:Qty: 1 on 05/09/2020 at [facility] [employer] [facility] Plate Procedures Procedure Name Priority Date/Time Associated Diagnosis Comments BASIC METABOLIC PANEL (BMP) Routine 05/10/2020 3:28 AM EDT from Last 3 Months or Most Recently Relevant to Health Maintenance Results * (ABNORMAL) Basic metabolic panel (05/10/2020 3:28 AM EDT) SODIUM 135 135 - 145 mmol/L [facility] POTASSIUM 3.9 3.4 - 5.0 mmol/L [facility] CHLORIDE 98 98 - 108 mmol/L [facility] CO2 24 23 - 32 mmol/L [facility] BUN 12 8 - 25 mg/dL [facility] CREATININE 0.78 0.60 - 1.50 mg/dL [facility] GLUCOSE 201(H) 70 - 110 mg/dL [facility] CALCIUM 8.8 8.5 - 10.5 mg/dL [facility] EGFR 75 >59 mL/min/1. 73m2 [facility] Comment:Estimated glomerular filtration rate calculated using the CKD-EPI equation. ANION GAP 13 3 - 17 mmol/L [facility] Blood 05/10/2020 3:28 AM EDT 05/10/2020 3:32 AM EDT Mario Garg DMD, MD LAB BLOOD BKR ORDERABL ES Final Result Performing Organization Address City/State/[facility] Co de Phone Number [address] [phone] from Last 3 Months or Most Recently Relevant to Health Maintenance Insurance MEDICARE PART A & B [employer] MEDEX SUPPLEMENT MEDICARE PART A & B [place] [employer] MEDEX SUPPLEMENT MEDICARE PART A & B [place] MEDEX SUPPLEMENT MEDICARE PART A & B [place] MEDEX SUPPLEMENT MEDICARE PART A & B [employer] MEDEX SUPPLEMENT MEDICARE PART A & B [place] MEDEX SUPPLEMENT MEDICARE PART A & B [employer] MEDEX SUPPLEMENT MEDICARE PART A & B [employer] MEDEX SUPPLEMENT MEDICARE PART A & B [employer] MEDEX SUPPLEMENT Advance Directives For more information, please contact: [phone] (9AM - 5PM [place]/[facility], Thursday-Thursday) Documents on File Type Date Recorded Patient Machine I Coremaker Expl anation Advance Directive - Non Epic LMR 07/02/2012 12:00 AM Healthcare Proxy 05/14/2020 * Full Code (Presumed) (Latest Code Status on File) Date Activated Date Inactivated Comments 05/09/2020 2:27 PM * Full Code (Presumed) Date Activated Date Inactivated Comments 05/09/2020 6:41 AM 05/09/2020 2:27 PM Care Teams Weapons System Instrument Mechanic Relationship Specialty Start Date End Date Ash Mallory MD [address] [place] [phone] [email or web address] PCP - General 05/16/14 Mario Garg DMD, MD [address] [place] [phone] [email or web address] mortgage loan officer 04/30/16 Additional Source Comments The information contained in this document represents components of the legal health record. It is not the complete legal health record.[facility]
--- OUTSIDE RECORDS SUMMARY | 2025-10-05 20:12 | XMS_ITS | Encounter Summary ---
Author Organization [facility] Address [address] [place] [phone] Phone Care Team Providers Care Supervisor Diagnostic Name Role Phone Ash Mallory MD Primary Care Provider [phone] Mario Garg DMD, MD Unavailable + [phone] Reason for Referral * MRI/CAT Scan - Closed Specialty Diagnoses / Procedures Referred By Contac t Referred To Contact Radiology Diagnoses Painful orthopaedic hardware Benign neoplasm of lower jaw bone Procedures CT 3D Reconstruction Face Mario Garg DMD, MD Phone: tel: fax: [email or web address] Referral ID Status Reason Start Date Expiration Date Visits Re quested Visits Authorized [id number] Closed 03/19/2020 03/19/2021 1 1 Encounter Details Date Type Department Care Team (Late st Contact Info) Description 03/19/2020 Ancillary Orders [facility] [address] [facility] [address] [place] [address] Mario Garg DMD, MD [address] [facility] [address] [place] [phone] [email or web address] Painful orthopaedic hardware; Benign neoplasm of lower jaw bone Social History Tobacco Use Types Packs/Day Years [...] on file documented as of this encounter Results * CT 3D Reconstruction Face (03/23/2020 2:16 PM EDT) Anatomical Region Laterality Modality Face Computed Tomogra phy 03/26/2020 8:40 AM EDT Impressions 03/27/2020 9:43 AM EDT 1. Postoperative findings compatible with interval right hemimandibulectomy for en bloc resection of recurrent ameloblastoma, titanium plate reconstruction, and right cervical dissection with right submandibular gland resection. 2. Fracture and foreshortening of the distal reconstruction plate, consistent with hardware failure, with subsequent upper rotation of the proximal right mandible. 3. No evidence for local tumor recurrence, within the limits of noncontrast CT technique. These findings were discussed with Dr. Garg during an email exchange on 03/26/20. ATTESTATION: I, Dr. Yunier Osorio as teaching physician, have reviewed the images for this case and if necessary edited the report originally created by Dr. Ortiz Rosario. 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 The plate is in discontinuity anteriorly/distally where it joins the reno-sparks mandibular apex; the proximal portion of the plate overrides the distal segment by approximately 12 mm superiorly. The posterior/proximal aspect of the plate remains appropriately seated flush to the residual right mandibular ramus; the proximal mandible is rotated upwards. There are no lucencies surrounding the screws. The temporomandibular joints are both appropriately located. There are linear radiodensities of metallic attenuation medial to the surgical site along the lingual aspect of the right mandibular angle, and also throughout the right neck such as within the right sublingual space and lateral to the right hyoid bone; these appear to be surgical clips. There is no evident soft tissue fluid collection. The remaining osseous structures are intact. The paranasal sinuses and mastoid air cells are well aerated, with opacification of a single right ethmoid air cell. The included aerodigestive tract is preserved, without evident mucosal asymmetry. The right submandibular gland has been resected; the left submandibular gland and both parotid glands are grossly normal. There is no cervical lymphadenopathy. The included intracranial and intraorbital contents are grossly normal. Procedure Note Yunier Osorio MD - 03/27/2020 TECHNIQUE: Diagnostic CT FACE WITHOUT CONTRAST, CT 3D RECONSTRUCTION FACE CLINICAL HISTORY/INDICATION: As in header; recurrent ameloblastoma statuspost en bloc resection of the right mandible with titanium platereconstruction 06/23/2012 COMPARISON: Face CT 05/15/2012 (preop) FINDINGS: There has been a right hemimandibulectomy with plate reconstruction andright cervical neck dissection; evaluation of hardware configuration islimited as there are no studies of the current construct available forcomparison (prior CT 05/15/2012 was done before definitive surgery). Theplate is in discontinuity anteriorly/distally where it joins the nativemandibular apex; the proximal portion of the plate overrides the distalsegment by approximately 12 mm superiorly. The posterior/proximal aspectof the plate remains appropriately seated flush to the residual rightmandibular ramus; the proximal mandible is rotated upwards. There are nolucencies surrounding the screws. The temporomandibular joints are bothappropriately located. There are linear radiodensities of metallic attenuation medial to thesurgical site along the lingual aspect of the right mandibular angle, andalso throughout the right neck such as within the right sublingual spaceand lateral to the right hyoid bone; these appear to be surgical clips.There is no evident soft tissue fluid collection. The remaining osseous structures are intact. The paranasal sinuses andmastoid air cells are well aerated, with opacification of a single rightethmoid air cell. The included aerodigestive tract is preserved, withoutevident mucosal asymmetry. The right submandibular gland has been resected; the left submandibulargland and both parotid glands are grossly normal. There is no cervicallymphadenopathy. The included intracranial and intraorbital contents are grossly normal. IMPRESSION: 1. Postoperative findings compatible with interval righthemimandibulectomy for en bloc resection of recurrent ameloblastoma,titanium plate reconstruction, and right cervical dissection with rightsubmandibular gland resection. 2. Fracture and foreshortening of the distal reconstruction plate,consistent with hardware failure, with subsequent upper rotation of theproximal right mandible. 3. No evidence for local tumor recurrence, within the limits ofnoncontrast CT technique. These findings were discussed with Dr. Garg during an email exchange on03/26/20. ATTESTATION: I, Dr. Yunier Osorio as teaching physician, have reviewed theimages for this case and if necessary edited the report originally createdby Dr. Ortiz Rosario. Mario Garg DMD, MD IMG CT Final Result documented in this encounter Visit Diagnoses Diagnosis Painful orthopaedic hardware Benign neoplasm of lower jaw bone Painful orthopaedic hardware Benign neoplasm of lower jaw bone documented in this encounter Care Teams Supervisor Diagnostic Relationship Specialty Start Date End Date Ash Mallory MD [address] [place] [address] [email or web address] PCP - General 05/16/14 Mario Garg DMD, MD [address] [place] [phone] freezer person 04/30/16 documented as of this encounter Additional Source Comments The information contained in this document represents components of the legal health record. It is not the complete legal health record.[facility]
--- OUTSIDE RECORDS SUMMARY | 2025-10-05 20:12 | XMS_ITS | Clinical Summary ---
Author Organization [facility] Address [address] [place] [address] Care Team Providers Care Oxygen Therapy Technician Name Role Phone Julianne Mallory MD Primary Care Provider Allergies Active Allergy Reactions Criticality Noted Date [...] age to complete this topic Care Teams Oxygen Therapy Technician Relationship Specialty Start Date End Date Julianne Mallory MD [address] [id number] PCP - General Internal Medicine 03/23/18
== END 2025-10-05 15:29 | disposition home or self-care (01) ==
LOC: HO.HSM 14:45
PROVIDERS: PCP Internal Medicine; Visit Provider Psychiatry & Neurology Neurology
DX: G30.9 Alzheimer's disease, unspecified (principal); F02.80 Dementia in other diseases classified elsewhere, unspecified severity, without behavioral disturbance, psychotic disturbance, mood disturbance, and anxiety
CPT/HCPCS: 99213

== ENCOUNTER → 2025-10-05 14:44 | Outpatient (BNVA) | payer MEDICARE, SELFPAY | PROVIDERS: PCP Internal Medicine; Visit Provider Psychiatry & Neurology Neurology | DX: G30.9 Alzheimer's disease, unspecified (principal); F02.80 Dementia in other diseases classified elsewhere, unspecified severity, without behavioral disturbance, psychotic disturbance, mood disturbance, and anxiety | CPT/HCPCS: 99212 ==